=== PATIENT | female | born 1980 ===

== ENCOUNTER 2020-05-25 14:08 | Outpatient (REF) | payer OTHER, SELFPAY | END 2020-05-25 14:09 | disposition home or self-care (01) | LOC: HO.MANLNP 14:08 | PROVIDERS: PCP Internal Medicine; Visit Provider Physician Assistant | DX: R30.9 Painful micturition, unspecified (principal) | CPT/HCPCS: 87086 ==

== ENCOUNTER 2020-06-25 16:39 | Outpatient (REF) | payer OTHER, SELFPAY ==
[2020-06-25 18:04] LABS: Glucose Urine UA NEG (NEG); Leukocyte Esterase Urine NEG (NEG); Nitrite Urine POS (NEG); Specific Gravity - Urine >= 1.030 (1.005-1.025); Urine Blood TRACE (NEG); Urine Ketones NEG (NEG); Urine Protein NEG (NEG-TRACE)
[2020-06-25 18:07] LABS: Appearance Urine HAZY; Color Urine YELLOW
[2020-06-25 18:19] LABS: Bacteria Urine 3+ /LPF; Squamous Epithelial Cell Urine 1+ /LPF
== END 2020-06-25 16:40 | disposition home or self-care (01) ==
LOC: HO.LAB 16:39
PROVIDERS: PCP Internal Medicine; Visit Provider Urology
DX: N20.0 Calculus of kidney (principal)
CPT/HCPCS: 81001; 87086; 87088; 87186

== ENCOUNTER → 2020-08-03 12:16 | Outpatient (BNVA) | payer OTHER, SELFPAY | PROVIDERS: PCP Internal Medicine; Visit Provider Urology ==

== ENCOUNTER 2020-12-25 11:00 | Outpatient (REF) | payer OTHER, SELFPAY ==
--- NOTE | ~2020-12-25 | XR_ITS ---
EXAMINATION: XR ABDOMEN KUB CLINICAL INDICATION: Renal stone. COMPARISON: Multiple priors, most recent renal ultrasound dated 11/02/2019. TECHNIQUE: AP views of the abdomen. FINDINGS: Left upper pole renal stone measuring up to 0.8 cm. Tiny right midpole renal stones measuring approximately 0.2 cm. Evaluation for renal stone is somewhat limited due to overlying bowel gas. Mild stool throughout the colon. Nonobstructive bowel gas pattern. No acute osseous abnormality. XR/XR KUB IMPRESSION: Left-sided renal stone measuring 0.8 cm and multiple right-sided 0.2 cm renal stones. Evaluation is somewhat limited due to overlying bowel gas.
== END 2020-12-25 11:01 | disposition home or self-care (01) ==
LOC: HO.XRAY 11:00
PROVIDERS: PCP Internal Medicine; Visit Provider Physician Assistant
DX: N20.0 Calculus of kidney (principal)
CPT/HCPCS: 74018; 87086

== ENCOUNTER → 2021-01-01 09:38 | Outpatient (BNVA) | payer OTHER, SELFPAY | PROVIDERS: PCP Internal Medicine; Visit Provider Urology ==

== ENCOUNTER 2021-01-17 16:26 | Outpatient (REF) | payer OTHER, SELFPAY ==
--- NOTE | ~2021-01-17 | US_ITS ---
EXAMINATION: US RETROPERITONEAL LIMITED (RENAL ONLY) CLINICAL INFORMATION: Calculus of kidney. COMPARISON: KUB 12/25/2020 and 05/26/2018. Renal ultrasound 11/02/2027 and 03/31/2019. TECHNIQUE: Real-time imaging of the kidneys. FINDINGS: RIGHT KIDNEY: 10.4 x 4.4 x 4.8 cm (SAG x AP x TRV). The kidney is normal in size, contour, and echogenicity. Renal cortical thickness is normal. There are 2 small stones in the upper and midpole measuring 4 mm. No focal parenchymal lesions or hydronephrosis. LEFT KIDNEY: 11.2 x 5.8 x 4.3 cm (SAG x AP x TRV). The kidney is normal in size, contour, and echogenicity. Renal cortical thickness is normal. There are 2 small stones in the upper and midpole measuring 3 mm. No focal parenchymal lesions or hydronephrosis. ADDITIONAL FINDINGS: There are small cysts in the liver and spleen. US/US renal BI IMPRESSION: Small bilateral renal stones..
== END 2021-01-17 16:27 | disposition home or self-care (01) ==
LOC: HO.US 16:26
PROVIDERS: PCP Internal Medicine; Visit Provider Urology
DX: N20.0 Calculus of kidney (principal)
CPT/HCPCS: 76775

== ENCOUNTER 2021-01-23 08:04 | Day surgery (SDC) | payer OTHER, SELFPAY ==
--- NOTE | 2021-01-22 11:16 | P.CONAN_ITS ---
Documented by User: Lana Madsen NP 01/22/21 11:18 HPI - Anesthesia Eval Consult details Narrative: 40yo F for Left ESWL last ESWL 2018 with MAC (freq PVCs noted at start of case) *Med allergies to Pain Meds * (rec'd propofol and lido only for last ESWL) PMFSH Active Problems Active Problems: All Active Problems (Updated 01/17/21 @ 14:50 by Pepper Krishna RN) Nephrolithiasis (Acute) Microscopic hematuria (Acute) Past Medical History Medical History Heartburn Iron deficiency anemia Renal stones Surgical History Surgical History History of lithotripsy History of lithotripsy Social History Social History Patient Tobacco Use Status: Never used Tobacco Second Hand Smoke Exposure: No Use of substances other than those prescribed or required for medical reasons: No Are you DNR?: No Advance Directives: No Advance Directives Information Provided: Yes Advance Directives on File: No Patient : No Meds Allergies Allergy/AdvReac Type Severity Reaction Status Date / Time codeine [CODEINE] Allergy Severe ANAPHYLAXIS Verified 01/17/21 14:51 hydrocodone [From VICODIN] Allergy Severe CHEST Verified 01/17/21 14:51 TIGHTNESS acetaminophen [Percocet] Allergy Intermediate Unknown Verified 01/23/21 09:06 oxycodone [From PERCOCET] AdvReac Severe THEY ARE Verified 01/17/21 14:51 TOO STRONG FOR MY BODY PAIN MEDS AdvReac Severe PT STATES Uncoded 01/17/21 14:51 ONLY TAKES MOTRIN-HAS OVERDOSE RX TO STRONGER Home Medications Medication Instructions Recorded Confirmed Last Taken Type cholecalciferol (vitamin D3) 50 1 cap PO DAILY 01/17/21 01/17/21 Unknown History mcg (2,000 unit) capsule Exam Exam Date and Time: January 22, 2021 111 Assessment and Plan Assessment Anesthesia Assessment: Chart Reviewed Documented by User: Shari Martines MD 01/23/21 09:47 [facility] Past Medical History Medical History Heartburn Iron deficiency anemia Renal stones Family History Family history of problems with anesthesia: No Surgical History Surgical History History of lithotripsy History of lithotripsy History of Problems with Anesthesia: No Social History Social History Patient Tobacco Use Status: Never used Tobacco Second Hand Smoke Exposure: No Use of substances other than those prescribed or required for medical reasons: No Are you DNR?: No Advance Directives: No Advance Directives Information Provided: Yes Advance Directives on File: No Patient : No Meds Allergies Allergy/AdvReac Type Severity Reaction Status Date / Time codeine [CODEINE] Allergy Severe ANAPHYLAXIS Verified 01/17/21 14:51 hydrocodone [From VICODIN] Allergy Severe CHEST Verified 01/17/21 14:51 TIGHTNESS acetaminophen [Percocet] Allergy Intermediate Unknown Verified 01/23/21 09:06 oxycodone [From PERCOCET] AdvReac Severe THEY ARE Verified 01/17/21 14:51 TOO STRONG FOR MY BODY PAIN MEDS AdvReac Severe PT STATES Uncoded 01/17/21 14:51 ONLY TAKES MOTRIN-HAS OVERDOSE RX TO STRONGER Home Medications Medication Instructions Recorded Confirmed Last Taken Type cholecalciferol (vitamin D3) 50 1 cap PO DAILY 01/17/21 01/17/21 Unknown History mcg (2,000 unit) capsule Exam Airway Mallampati Class: II TM Dist: >3cm Neck ROM: Full Assessment and Plan Assessment Anesthesia Assessment: Anesthesia Plan Discussed Final Anesthetic Review Family History of Problems with Anesthesia: No History of Problems with Anesthesia: No NPO: Yes ASA Class: II Final Preanesthetic Review: No Changes in Pt Med Stat, Meds/Allgs Chart Reviewed, Consent Obtained/Reviewed and Anes Risks/Benef Reviewed Patient Risk: Low Procedure Risk: Low Assessment/Block/Sedation in SS: Assess/Block/Sedation-SS Anesthetic Plan Anesthetic Plan: MAC: Disposition: Standard PACU
--- NOTE | ~2021-01-23 | XR_ITS ---
EXAMINATION: XR ABDOMEN KUB CLINICAL INDICATION: Nephrolithiasis COMPARISON: Renal ultrasound January 17, 2021 and KUB December 25, 2020 TECHNIQUE: Single view, two film KUB of the abdomen was obtained. Overlying stool limits sensitivity for small renal calculi. FINDINGS: Stable 8 mm calcification projecting over the upper pole of the left renal shadow. No definitive calcifications identified projecting over the right renal shadow, however, there is a prominent stool burden in this region so the previously visualized 2 mm stones may be present but obscured. Punctate pelvic calcifications is similar and likely vascular in nature. Nonobstructive bowel gas pattern. Moderate colonic stool burden. No acute osseous abnormality. XR/XR KUB IMPRESSION: -Stable left 8 mm renal calculus. -Right renal calculi not identified on today's radiographs, possibly due to overlying stool.
[2021-01-23 08:23] LABS: UPreg QC Valid YES; Urine Pregnancy NEGATIVE (NEGATIVE)
[2021-01-23 09:04] VITALS: BMI 26.4
--- NOTE | 2021-01-23 09:09 | PC.NURSE ---
verified patient allergy to acetaminophen. pt states she can take anything under 800mg. any amount over 800mg can cause chest tightness. pt states allergy to pain medication such as percocet and vicodin. pt agreeable and okay with taking ordered tylenol 650mg po. pharmacy notified.
[2021-01-23] MEDS: Acetaminophen 325 MG TABLET 650 MG PO (09:10)
[2021-01-23 09:16] VITALS: BP 89/53; PULSE 79; RESP 16; TEMP 36.4; O2SAT 100
[2021-01-23] MEDS: Lactated Ringers 1,000 ML 100 ML IVCONT (09:24)
--- NOTE | 2021-01-23 09:41 | MHC.SHP ---
Pre-Procedural Eval Section A Date of Service: 01/23/21 Section B Chief Complaint: kidney stone Details of Present Illness: Left-sided kidney stone fragments Relevant Social History: None Present Medications: see Short Stay Collaborative assessment Medical History: No relevant PMH History of Previous Operations: Relevant previous surgery/procedure and date(s) Allergies: Allergies Allergy/AdvReac Type Severity Reaction Status Date / Time codeine [CODEINE] Allergy Severe ANAPHYLAXIS Verified 01/17/21 14:51 hydrocodone [From VICODIN] Allergy Severe CHEST Verified 01/17/21 14:51 TIGHTNESS acetaminophen [Percocet] Allergy Intermediate Unknown Verified 01/23/21 09:06 oxycodone [From PERCOCET] AdvReac Severe THEY ARE Verified 01/17/21 14:51 TOO STRONG FOR MY BODY PAIN MEDS AdvReac Severe PT STATES Uncoded 01/17/21 14:51 ONLY TAKES MOTRIN-HAS OVERDOSE RX TO STRONGER Review of Systems Sugical H&P ROS: Negative: Constitution, Cardiovascular, Respiratory, Neurological, Psychiatric, Hem-Onc, Allergic/Immunologic, Gastrointestinal, Genitourinary, Musculoskeletal, Integumentary, Endocrine and Eyes/Ears/Nose/Throat Exam Surgical H&P Exam: Normal: HEENT, Normal: Heart, Normal: Lungs, Normal: Extremities, Normal: Abdomen, Normal: Skin and Normal: Neurological Plan Diagnosis/Plan: Unchanged (Left ESWL renal stone) I have reviewed the history and physical and performed a pertinent physical examination on my patient. No changes have occurred unless specified.
--- NOTE | 2021-01-23 10:21 | P.OP_ITS ---
Operative Note Operative Note Date of Service: 01/23/21 Narrative: PreOperative Diagnosis: left Renal stones Post Operative Diagnosis: left Renal stones Procedure: left ESWL Surgeon: Dr Allen Sharp Anesthesia: mac/sedation Indications for procedure: The patient understands ESWL may be a staged procedure and subsequent intervention may be required based on imaging after ESWL. They also understand there is a risk of bleeding to the kidney, infection, damage to adjacent organs, and stone migration following the procedure. - left 6mm mid pole Procedure: After informed consent was verified the patient was brought to the operating room and placed in a supine position. Anesthesia was performed per protocol. Safety pause time-out was performed. Imaging was displayed in the room and laterality confirmed. ESWL was performed. The 1st 500 shocks were performed at 60 hertz. These were performed with inc reasing power. Once maximum power was reached the rate was increased to 180 hertz. A total of 2500 shocks were given. Targeted imaging with ultrasound/fluoroscopy showed stone smudging suggestive of disintegration. The patient tolerated the procedure well and was transferred to the recovery area upon completion. Post procedure imaging will be organized. There was no evidence for flank discoloration.
[2021-01-23 10:53] VITALS: BP 100/49; PULSE 52; RESP 16; TEMP 36.8; O2SAT 99
[2021-01-23 11:08] VITALS: BP 101/58; PULSE 60; RESP 16; O2SAT 100
[2021-01-23 11:23] VITALS: BP 99/62; PULSE 54; RESP 16; TEMP 36.8; O2SAT 100
[2021-01-23] MEDS: Phenazopyridine HCL 100 MG TABLET PO (11:46)
== END 2021-01-23 11:48 | disposition home or self-care (01) ==
PROVIDERS: Nurse Practitioner; PCP Internal Medicine; Visit Provider Urology
PROC: (CPT 50590; principal; 2021-01-23 09:50)
DX: N20.0 Calculus of kidney (principal); Z87.442 Personal history of urinary calculi
CPT/HCPCS: 50590; 74018; 81025; J1885; J2250; J2405; J3010

== ENCOUNTER 2021-02-13 14:26 | Outpatient (REF) | payer OTHER, SELFPAY ==
--- NOTE | ~2021-02-13 | US_ITS ---
EXAMINATION: US RETROPERITONEAL LIMITED (RENAL ONLY) CLINICAL INFORMATION: Renal stones. COMPARISON: Renal ultrasound 01/17/2021 and 11/02/2019. KUB 01/23/2021. TECHNIQUE: Real-time imaging of the kidneys. FINDINGS: RIGHT KIDNEY: 10.6 x 4.1 x 5.8 cm (SAG x AP x TRV). The kidney is normal in size, contour, and echogenicity. Renal cortical thickness is normal. No focal parenchymal lesions or hydronephrosis. Calculi are noted. There is a 0.3 cm midpole calculus. 0.2 cm lower pole calculus. LEFT KIDNEY: 10.4 x 5.8 x 5.7 cm (SAG x AP x TRV). The kidney is normal in size, contour, and echogenicity. Renal cortical thickness is normal. No focal parenchymal lesions or hydronephrosis. Multiple calculi are present. There are at least 5 calculi measuring up to 0.3 cm as seen at the upper and midpole. US/US renal BI IMPRESSION: No hydronephrosis. Multiple bilateral renal calculi. Compared to the most recent prior ultrasound, the number of calculi in the left kidney may be increased..
[2021-02-13 16:30] LABS: Appearance Urine HAZY; Color Urine YELLOW; Glucose Urine UA NEG (NEG); Leukocyte Esterase Urine NEG (NEG); Nitrite Urine NEG (NEG); Specific Gravity - Urine 1.025 (1.005-1.025); Urine Blood 2+ (NEG); Urine Ketones NEG (NEG); Urine Protein TRACE MG/DL (NEG-TRACE)
[2021-02-13 16:38] LABS: Bacteria Urine 1+ /LPF; Squamous Epithelial Cell Urine 2+ /LPF; WBC Urine 0 /HPF (0-4)
[2021-02-13 16:39] LABS: Mucus Urine 1+ /LPF
[2021-02-13 16:57] LABS: Calcium 9.3 mg/dL (8.4-10.2); Magnesium 1.8 mg/dL (1.6-2.6); Phosphorus 3.9 mg/dL (2.7-4.5)
[2021-02-13 17:06] LABS: Uric Acid 4.7 mg/dL (2.4-5.7)
[2021-02-15 10:32] LABS: Calcium (PTHI) 9.4 mg/dL (8.6-10.2); PTHI 51 pg/mL (14-64)
== END 2021-02-13 14:27 | disposition home or self-care (01) ==
LOC: HO.HMGCX 14:26
PROVIDERS: PCP Internal Medicine; Visit Provider Urology
DX: N20.0 Calculus of kidney (principal); Z87.442 Personal history of urinary calculi
CPT/HCPCS: 36415; 76775; 81001; 82310; 83735; 83970; 84100; 84550; 87086

== ENCOUNTER → 2021-02-26 15:28 | Outpatient (BNVA) | payer OTHER, SELFPAY | PROVIDERS: PCP Internal Medicine ==

== ENCOUNTER 2021-06-04 08:18 | Outpatient (REF) | payer OTHER, SELFPAY ==
--- NOTE | ~2021-06-04 | XR_ITS ---
EXAMINATION: XR CERVICAL SPINE CLINICAL INFORMATION: Headache with orthostatic component. Neck pain. COMPARISON: None TECHNIQUE: 6 views of the cervical spine, inclusive of flexion and extension views, were obtained. FINDINGS: The vertebral alignment is normal. No intrinsic bony abnormality. The disc heights and neural foramina are well maintained. The endplates and posterior elements are normal. No fracture or subluxation. There are bilateral C7 cervical ribs. The surrounding prevertebral soft tissues are unremarkable. XR/XR cervical spine min 6V IMPRESSION: Bilateral C7 cervical ribs. Otherwise, unremarkable cervical spine exam.
[2021-06-04 09:11] LABS: MANUAL DIFF FLAG NO
[2021-06-04 09:22] LABS: Basophils Percent Auto 0.2 % (0-2); Eosinophils Percent Auto 0.8 % (0-4); Hemoglobin 13.6 g/dl (12.0-16.0); Imm Gran Abs Auto 0.01 X10*3/uL (0.00-0.03); Imm Gran Pct Auto 0.2 % (0.0-0.4); Lymphocytes Absolute Auto 1.5 X10*3/uL (1.2-4.9); Lymphocytes Percent Auto 27.7 % (20-40); Mean Corpuscular HGB Conc 31.6 g/dl (31.0-35.0); Mean Corpuscular Hemoglobin 26.2 pg (27.0-33.0); Mean Corpuscular Volume 82.9 fL (80.0-98.0); Mean Platelet Volume 11.1 fL (9.4-12.3); Monocytes Absolute Auto 0.4 X10*3/uL (0.1-1.2); Monocytes Percent Auto 8.3 % (2-11); Neutrophils Absolute Auto 3.3 x10*3/uL (2.0-8.3); Neutrophils Percent Auto 62.8 % (45-73); Platelet Count 202 X10*3/uL (160-400); Red Blood Count 5.19 X10*6/uL (4.20-5.50); Red Cell Distribution Width 13.3 % (11.0-16.0); White Blood Count 5.3 X10*3/uL (4.8-10.8)
[2021-06-04 09:59] LABS: Alanine Aminotransferase 17 U/L (0-31); Albumin Level 4.3 g/dL (3.5-5.0); Alkaline Phosphatase 54 U/L (39-117); Anion Gap 10 (12-20); Aspartate Amino Transferase 17 U/L (5-31); Bilirubin Total 0.6 mg/dL (0.0-1.0); Blood Urea Nitrogen 13 mg/dL (9-16); C Reactive Protein 0.04 mg/dL (< or = 0.50); Calcium 9.5 mg/dL (8.4-10.2); Carbon Dioxide 27 mmol/L (22-29); Chloride 107 mmol/L (96-108); Estimated Glomerular Filt Rate > 60; Glucose Random 86 mg/dL (60-115); Iron 97 mcg/dL (30-160); Percent Iron Saturation 28 % (15-50); Sodium 139 mmol/L (135-145); Total Iron Binding Capacity 350 mcg/dL (228-428); Unsaturated Iron Binding 253 ug/dL
[2021-06-04 10:08] LABS: Erythrocyte Sedimentation Rate 2 MM/HR (0-20)
[2021-06-04 10:19] LABS: Free T4 (Free Thyroxine) 0.92 ng/dL (0.71-1.85); Vitamin D 25-OH Total 9.4 ng/mL (>30)
[2021-06-04 10:49] LABS: Folate 12.3 ng/mL (> or = 4.0); Vitamin B12 348 pg/mL (200-900)
== END 2021-06-04 08:19 | disposition home or self-care (01) ==
LOC: HO.XRAY 08:18
PROVIDERS: PCP Internal Medicine; Visit Provider Physician Assistant
DX: R53.83 Other fatigue (principal); R51.0 Headache with orthostatic component, not elsewhere classified
CPT/HCPCS: 36415; 72052; 80053; 82306; 82607; 82746; 83540; 84439; 84443; 85025; 85652; 86140

== ENCOUNTER 2021-08-09 08:29 | Outpatient (REF) | payer OTHER, SELFPAY ==
--- NOTE | ~2021-08-09 | US_ITS ---
EXAMINATION: US RETROPERITONEAL LIMITED (RENAL ONLY) CLINICAL INFORMATION: Calculus of kidney. COMPARISON: Renal ultrasound 02/13/2021 and 01/17/2021. X-ray KUB 01/23/2021 and 12/25/2020. TECHNIQUE: Real-time imaging of the kidneys. FINDINGS: RIGHT KIDNEY: 11.5 x 4.4 x 6.2 cm (SAG x AP x TRV). The kidney is normal in size, contour, and echogenicity. Renal cortical thickness is normal. No focal parenchymal lesions or cysts visualized. There are 3 echogenic stones. A upper pole echogenic stone measures 0.3 x 0.3 x 0.3 cm. Midpole echogenic stone measuring 0.4 x 0.3 x 0.3 cm. Lower pole stone measuring 0.2 x 0.2 x 0.3 cm. There is no caliectasis or hydronephrosis. LEFT KIDNEY: 10.7 x 5.0 x 5.0 cm (SAG x AP x TRV). The kidney is normal in size, contour, and echogenicity. Renal cortical thickness is normal. No focal parenchymal lesions or cysts. There are 3 anechoic stones seen. 1. Lower pole echogenic anechoic stone measures 0.3 x 0.4 x 0.2 cm, midpole stone measures 0.3 x 0.3 x 0.2 cm and midpole stone measures 0.3 x 0.3 x 0.2 cm. There is no caliectasis or hydronephrosis. US/US renal BI IMPRESSION: Bilateral nonobstructive small echogenic renal calculi. No hydronephrosis.
== END 2021-08-09 08:30 | disposition home or self-care (01) ==
LOC: HO.HMGCX 08:29
PROVIDERS: PCP Internal Medicine
DX: N20.0 Calculus of kidney (principal)
CPT/HCPCS: 76775

== ENCOUNTER 2021-09-12 08:02 | Outpatient (REF) | payer OTHER, SELFPAY ==
--- NOTE | ~2021-09-12 | CT_ITS ---
EXAMINATION: CT HEAD WITHOUT CONTRAST CLINICAL INFORMATION: Headache and vertigo COMPARISON: None TECHNIQUE: Contiguous axial imaging was performed from the skull base to vertex without intravenous administration of contrast. This CT examination was performed using dose optimization techniques as appropriate, variously including the following: *Automated exposure control *Adjustment of mA and/or kV according to patient size (this includes techniques or standardized protocols for targeted exams where dose is matched to indication/reason for exam; i.e. extremities or head) *Use of iterative reconstruction technique DLP: 699 mGy-cm FINDINGS: There is no evidence of acute intracranial hemorrhage or territorial infarction. No abnormal mass effect or midline shift is seen. Noriega to white matter differentiation is well preserved. No extra-axial fluid collections are identified. The ventricles are normal in size. There is no abnormal attenuation within the brain parenchyma. The osseous structures and soft tissues are normal. The mastoid air cells and visualized portions of the paranasal sinuses are well aerated. CT/CT head/brain wo con IMPRESSION: No acute intracranial process seen
== END 2021-09-12 08:03 | disposition home or self-care (01) ==
LOC: HO.CT 08:02
PROVIDERS: Visit Provider Physician Assistant
DX: R51.0 Headache with orthostatic component, not elsewhere classified (principal)
CPT/HCPCS: 70450

== ENCOUNTER → 2021-09-24 15:28 | Outpatient (BNVA) | payer OTHER, SELFPAY | PROVIDERS: PCP Internal Medicine | DX: N20.0 Calculus of kidney (principal) ==

== ENCOUNTER 2022-01-02 12:30 | Outpatient (REF) | payer OTHER, SELFPAY ==
[2022-01-02 14:02] LABS: Appearance Urine Clear; Color Urine Yellow; Glucose Urine UA Negative (Negative); Leukocyte Esterase Urine Trace (Negative); Nitrite Urine Negative (Negative); PH 7.5 (5.0-9.0); UMIC TRIGGER UA YES; Urine Blood Negative (Negative); Urine Ketones Negative (Negative); Urine Protein Negative (Neg-Trace)
[2022-01-02 14:05] LABS: Bacteria Urine None Seen (None Seen); Hyaline Casts Urine 0-2 /LPF (0-2); RBC Urine 0-2 /HPF (0-2); WBC Urine 0-5 /HPF (0-5)
== END 2022-01-02 12:31 | disposition home or self-care (01) ==
LOC: HO.HMGCLDS 12:30
PROVIDERS: PCP Internal Medicine; Visit Provider Urology
DX: N20.0 Calculus of kidney (principal)
CPT/HCPCS: 81001; 87086

== ENCOUNTER 2022-05-19 08:09 | Emergency (ER) | payer OTHER, SELFPAY ==
--- NOTE | ~2022-05-19 | US_ITS ---
EXAMINATION: US RETROPERITONEAL LIMITED (RENAL ONLY) CLINICAL INFORMATION: Bilateral flank pain. History of renal colic. COMPARISON: No prior CT scan. Renal ultrasound examinations dating between August 09, 2021 and January 08, 2018. TECHNIQUE: Real-time ultrasound examination of the kidneys was performed. Images were supplemented by color Doppler. FINDINGS: RIGHT KIDNEY: 11.8 x 5.6 x 6.7 cm (SAG x AP x TRV). The kidney appears unremarkable in size, contour, and echogenicity. Renal cortical thickness is normal. No focal parenchymal lesion identified. 0.6 cm mid and 0.4 cm lower pole nonobstructing collecting system calcifications. Question additional punctate nonobstructing calcifications, suboptimally visualized. No hydronephrosis. LEFT KIDNEY: 10.2 x 5.0 x 5.5 cm (SAG x AP x TRV). The kidney appears unremarkable in size, contour, and echogenicity. Renal cortical thickness is normal. No focal parenchymal lesion identified. 0.4 cm upper, 0.5 cm mid, and 0.6 cm lower pole nonobstructing collecting system calcification. No hydronephrosis. US/US renal BI IMPRESSION: No evidence of hydronephrosis. Bilateral, nonobstructing renal collecting system calcifications.
[2022-05-19 08:11] VITALS: BP 110/63; PULSE 81; RESP 16; TEMP 36.8; O2SAT 99; BMI 26.9
[2022-05-19 08:21] VITALS: BP 108/68; PULSE 82; TEMP 36.7; O2SAT 98
[2022-05-19 09:06] LABS: Appearance Urine Clear; Color Urine Dark Yellow; Glucose Urine UA Negative (Negative); Leukocyte Esterase Urine Trace (Negative); Nitrite Urine Negative (Negative); Specific Gravity - Urine >= 1.030 (1.005-1.025); UMIC TRIGGER UACC YES; Urine Blood Small (1+) (Negative); Urine Ketones Trace mg/dL (Negative); Urine Protein 30 (1+) mg/dL (Neg-Trace)
[2022-05-19 09:07] LABS: UPreg QC Valid YES; Urine Pregnancy NEGATIVE (NEGATIVE)
[2022-05-19] MEDS: Ondansetron ODT 4 MG TAB.RAPDIS TRANSLINGU (09:12)
[2022-05-19 09:13] LABS: Bacteria Urine None Seen (None Seen); WBC Urine 0-5 /HPF (0-5)
--- NOTE | 2022-05-19 09:36 | ED_ITS ---
HPI - Abdominal Pain General Chief Complaint: Abdominal Pain Stated Complaint: lower back pain chest tightness Time Seen by Provider: 05/19/22 08:32 Source: patient Mode of arrival: ambulatory History of Present Illness HPI narrative: 41-year-old female with history of renal colic who presents with increasing lower back and lower abdominal discomfort that has been ongoing for a couple of days and is now associated with nausea, vomiting, chills denies dysuria. Related Data Home Medications Medication Instructions Recorded Confirmed cholecalciferol (vitamin D3) 50 1 cap PO DAILY 01/17/21 01/17/21 mcg (2,000 unit) capsule Previous Rx's Medication Instructions Recorded nitrofurantoin macrocrystal 100 mg 100 mg PO BID 5 days #10 caps 06/27/20 capsule tamsulosin 0.4 mg capsule 0.4 mg PO BEDTIME 14 days #14 caps 01/23/21 pyridoxine (vitamin B6) 100 mg 100 mg PO DAILY 90 days #90 tabs 02/26/21 tablet phenazopyridine 100 mg tablet 100 mg PO TID PRN pain 5 days #15 01/06/22 (Pyridium) tabs Allergies Allergy/AdvReac Type Severity Reaction Status Date / Time codeine [CODEINE] Allergy Severe ANAPHYLAXIS Verified 09/24/21 15:33 hydrocodone [From VICODIN] Allergy Severe CHEST Verified 09/24/21 15:33 TIGHTNESS acetaminophen [Percocet] Allergy Intermediate Unknown Verified 09/24/21 15:33 oxycodone [From PERCOCET] AdvReac Severe THEY ARE Verified 09/24/21 15:33 TOO STRONG FOR MY BODY PAIN MEDS AdvReac Severe PT STATES Uncoded 09/24/21 15:33 ONLY TAKES MOTRIN-HAS OVERDOSE RX TO STRONGER Review of Systems Review of Systems Pertinent positives and negatives as stated in HPI. PMFSH Past Medical History Source: nursing notes reviewed Medical History Heartburn Iron deficiency anemia Renal stones Surgical History History of lithotripsy History of lithotripsy Social History Social History Alcohol intake: current Alcohol intake frequency: holidays/special occasions only Patient Tobacco Use Status: Never used Tobacco Smoked in Last 30 Days: No Second Hand Smoke Exposure: No Use of substances other than those prescribed or required for medical reasons: No Advance Directives: Yes Advance Directives Information Provided: No Advance Directives on File: No Patient : No Physical Exam ED Vital Signs: Vital Signs - 24 hr 05/19/22 08:11 05/19/22 08:21 05/19/22 10:06 Temperature 98.2 F 98.1 F 98.1 F Pulse Rate 81 82 70 Respiratory Rate 16 Blood Pressure 110/63 108/68 111/62 Pulse Oximetry 99 98 97 Oxygen Delivery Method Room Air Room Air Room Air 05/19/22 11:58 Temperature 98.1 F Pulse Rate 66 Respiratory Rate Blood Pressure 97/64 Pulse Oximetry 98 Oxygen Delivery Method Room Air BMI result Body Mass Index 26.9 VITAL SIGNS: Reviewed. GENERAL: Well developed, well nourished, in no acute distress. HEAD: Normocephalic/atraumatic EYES: PERRLA, EOMI LUNGS: Normal breath sounds. CARDIOVASCULAR: Regular rate and rhythm without noted murmurs ABDOMEN: Soft, non-tender, non-distended with bowel sounds, no CVA tenderness MUSCULOSKELETAL: No tenderness, deformities, or effusions noted on gross inspection. EXTREMITIES: No cyanosis, clubbing or edema. SKIN: Inspection of the skin reveals no rashes NEUROLOGIC: Alert and oriented x 4. Strength and sensation to light touch were grossly intact x 4. Medical Decision Making Medical Decision Making MDM Narrative: 41-year-old female with back and lower abdominal discomfort. Labs, UA, ultrasound, Zofran/analgesics On re-evaluation patient is feeling much better and all results and findings were discussed with her bedside. On review of all investigations patient appea rs to have nonspecific lower abdominal discomfort that does not appear to be attributable to renal colic, UTI or pyelonephritis. She is otherwise discharged home with recommendations to use Tylenol and ibuprofen as needed for discomfort and follow-up with primary care provider and she will also be given a referral to follow-up with Dr. Sharp. Differential Diagnosis Differential Diagnoses: The differential diagnosis associated with the presentation includes Please see discussion above Lab Data [facility] Lab Attestation statement: I reviewed the patient's lab results. Please see discussion above 05/19/22 09:40 05/19/22 09:40 Labs: Lab Results 05/19/22 05/19/2205/19/23 Range/Units 08:48 08:48 09:40 WBC 4.5 L (4.8-10.8) X10*3/uL RBC 5.05 (4.20-5.50) X10*6/uL Hgb 13.0 (12.0-16.0) g/dl Hct 40.1 (37.0-47.0) % MCV 79.4 L (80.0-98.0) fL MCH 25.7 L (27.0-33.0) pg MCHC 32.4 (31.0-35.0) g/dl RDW 13.6 (11.0-16.0) % Plt Count 162 (160-400) X10*3/uL MPV 10.3 (9.4-12.3) fL Immature Gran % (Auto) 0.2 (0.0-0.4) % Neut % (Auto) 62.8 (45-73) % Lymph % (Auto) 21.4 (20-40) % Gilmer % (Auto) 15.4 H (2-11) % Eos % (Auto) 0.0 (0-4) % Baso % (Auto) 0.2 (0-2) % Lymph # (Auto) 1.0 L (1.2-4.9) X10*3/uL Gilmer # (Auto) 0.7 (0.1-1.2) X10*3/uL Eos # (Auto) 0.0 (0.0-0.4) X10*3/uL Baso # (Auto) 0.0 (0.0-0.2) X10*3/uL Abs Immat Gran (auto) 0.01 (0.00-0.03) X10*3/uL Absolute Neuts (auto) 2.9 (2.0-8.3) x10*3/uL Absolute Nucleated RBC 0.000 (0.0-0.012) X10*3/uL Nucleated RBC % (auto) 0.0 (0.0-0.2) /100WBC Sodium (135-145) mmol/L Potassium (3.3-5.1) mmol/L Chloride (96-108) mmol/L Carbon Dioxide (22-29) mmol/L Anion Gap (12-20) BUN (9-16) mg/dL Creatinine (0.5-1.4) mg/dL Estim Creat Clear Calc Estimated GFR Random Glucose (60-115) mg/dL Calcium (8.4-10.2) mg/dL Total Bilirubin (0.0-1.0) mg/dL AST (5-31) U/L ALT (0-31) U/L Alkaline Phosphatase (39-117) U/L Total Protein (6.5-8.0) g/dL Albumin (3.5-5.0) g/dL Urine Color Dark Yellow Urine Appearance Clear Urine pH 6.0 (5.0-9.0) Ur Specific Tennille >= 1.030 H (1.005-1.025) Urine Protein 30 (1+) H (Neg-Trace) mg/dL Urine Glucose (UA) Negative (Negative) mg/dL Urine Ketones Trace (Negative) mg/dL Urine Blood Small (1+) H (Negative) Urine Nitrite Negative (Negative) Ur Leukocyte Esterase Trace H (Negative) Urine RBC 3-5 H (0-2) /HPF Urine WBC 0-5 (0-5) /HPF Ur Squamous Epith Cells 3-5 (0-2) /HPF Urine Bacteria None Seen (None Seen) Hyaline Casts 3-5 (0-2) /LPF Urine Test NEGATIVE (NEGATIVE) 05/19/22 Range/Units 09:40 WBC (4.8-10.8) X10*3/uL RBC (4.20-5.50) X10*6/uL Hgb (12.0-16.0) g/dl Hct (37.0-47.0) % MCV (80.0-98.0) fL MCH (27.0-33.0) pg MCHC (31.0-35.0) g/dl RDW (11.0-16.0) % Plt Count (160-400) X10*3/uL MPV (9.4-12.3) fL Immature Gran % (Auto) (0.0-0.4) % Neut % (Auto) (45-73) % Lymph % (Auto) (20-40) % Gilmer % (Auto) (2-11) % Eos % (Auto) (0-4) % Baso % (Auto) (0-2) % Lymph # (Auto) (1.2-4.9) X10*3/uL Gilmer # (Auto) (0.1-1.2) X10*3/uL Eos # (Auto) (0.0-0.4) X10*3/uL Baso # (Auto) (0.0-0.2) X10*3/uL Abs Immat Gran (auto) (0.00-0.03) X10*3/uL Absolute Neuts (auto) (2.0-8.3) x10*3/uL Absolute Nucleated RBC (0.0-0.012) X10*3/uL Nucleated RBC % (auto) (0.0-0.2) /100WBC Sodium 138 (135-145) mmol/L Potassium 4.3 (3.3-5.1) mmol/L Chloride 107 (96-108) mmol/L Carbon Dioxide 25 (22-29) mmol/L Anion Gap 10 L (12-20) BUN 11 (9-16) mg/dL Creatinine 0.65 (0.5-1.4) mg/dL Estim Creat Clear Calc 96.0 Estimated GFR > 60 Random Glucose 87 (60-115) mg/dL Calcium 8.9 D (8.4-10.2) mg/dL Total Bilirubin 0.4 (0.0-1.0) mg/dL AST 16 (5-31) U/L ALT 18 (0-31) U/L Alkaline Phosphatase 55 (39-117) U/L Total Protein 6.6 (6.5-8.0) g/dL Albumin 4.0 (3.5-5.0) g/dL Urine Color Urine Appearance Urine pH (5.0-9.0) Ur Specific Tenn[place] (1.005-1.025) Urine Protein (Neg-Trace) mg/dL Urine Glucose (UA) (Negative) mg/dL Urine Ketones (Negative) mg/dL Urine Blood (Negative) Urine Nitrite (Negative) Ur Leukocyte Esterase (Negative) Urine RBC (0-2) /HPF Urine WBC (0-5) /HPF Ur Squamous Epith Cells (0-2) /HPF Urine Bacteria (None Seen) Hyaline Casts (0-2) /LPF Urine Test (NEGATIVE) Radiology Impression Radiologist Impression: My interpretation is agree with radiology's impression of the imaging study. Medications Administered Discontinued Medications Generic Name Dose Route Start Last Admin Trade Name Freq PRN Reason Stop Dose Admin Ibuprofen 400 mg 05/19/22 09:37 05/19/22 10:53 Ibuprofen 400 Mg Tablet PO 05/19/22 09:38 400 mg ONCE ONE Administration Ondansetron HCl 4 mg 05/19/22 08:33 05/19/22 09:12 Ondansetron Odt 4 Mg Tab.Rapdis TRANSLINGU 05/19/22 08:34 4 mg ONCE ONE Administration Discharge Plan Discharge Clinical Impression: Abdominal discomfort Patient Disposition: Home, Self-Care Instructions: Abdominal Pain (ED) Additional Instructions: 1. Recommend [id number] Tylenol/ibuprofen as needed for pain control, increase fluid hydration in limit the amount of caffeine and carbonated products at this time. 2. You have been provided with a referral to follow-up with urology please call the office and set up an appointment for evaluation. Return to the ER for any worsening symptoms. Prescriptions: No Action nitrofurantoin macrocrystal 100 mg capsule 100 mg PO BID 5 Days Qty: 10 0RF Rx Instructions: must administer with a meal/food phenazopyridine [Pyridium] 100 mg tablet 100 mg PO TID PRN (Reason: pain) 5 Days Qty: 15 0RF cholecalciferol (vitamin D3) 50 mcg (2,000 unit) capsule 1 cap PO DAILY tamsulosin 0.4 mg capsule 0.4 mg PO BEDTIME 14 Days Qty: 14 0RF pyridoxine (vitamin B6) 100 mg tablet 100 mg PO DAILY 90 Days Qty: 90 1RF Referrals: Oni Amezquita MD [Primary Care Provider] - Allen Sharp MD [Physician] -
[2022-05-19 09:47] LABS: MANUAL DIFF FLAG NO
[2022-05-19 09:50] LABS: Basophils Percent Auto 0.2 % (0-2); Hematocrit 40.1 % (37.0-47.0); Imm Gran Abs Auto 0.01 X10*3/uL (0.00-0.03); Imm Gran Pct Auto 0.2 % (0.0-0.4); Lymphocytes Percent Auto 21.4 % (20-40); Mean Corpuscular HGB Conc 32.4 g/dl (31.0-35.0); Mean Corpuscular Hemoglobin 25.7 pg (27.0-33.0); Mean Corpuscular Volume 79.4 fL (80.0-98.0); Mean Platelet Volume 10.3 fL (9.4-12.3); Monocytes Absolute Auto 0.7 X10*3/uL (0.1-1.2); Monocytes Percent Auto 15.4 % (2-11); Neutrophils Absolute Auto 2.9 x10*3/uL (2.0-8.3); Neutrophils Percent Auto 62.8 % (45-73); Platelet Count 162 X10*3/uL (160-400); Red Blood Count 5.05 X10*6/uL (4.20-5.50); Red Cell Distribution Width 13.6 % (11.0-16.0); White Blood Count 4.5 X10*3/uL (4.8-10.8)
[2022-05-19 10:05] LABS: Alanine Aminotransferase 18 U/L (0-31); Alkaline Phosphatase 55 U/L (39-117); Anion Gap 10 (12-20); Aspartate Amino Transferase 16 U/L (5-31); Bilirubin Total 0.4 mg/dL (0.0-1.0); Blood Urea Nitrogen 11 mg/dL (9-16); Calcium 8.9 mg/dL (8.4-10.2); Carbon Dioxide 25 mmol/L (22-29); Chloride 107 mmol/L (96-108); Estimated Glomerular Filt Rate > 60; Glucose Random 87 mg/dL (60-115); Potassium 4.3 mmol/L (3.3-5.1); Sodium 138 mmol/L (135-145); Total Protein 6.6 g/dL (6.5-8.0)
[2022-05-19 10:06] VITALS: BP 111/62; PULSE 70; TEMP 36.7; O2SAT 97
[2022-05-19] MEDS: Ibuprofen 400 MG TABLET PO (10:53)
[2022-05-19 11:58] VITALS: BP 97/64; PULSE 66; TEMP 36.7; O2SAT 98
[2022-05-19 14:50] VITALS: BP 102/61; PULSE 66; RESP 18; TEMP 36.8; O2SAT 98
== END 2022-05-19 14:52 | disposition home or self-care (01) ==
PROVIDERS: Emergency Provider Student in an Organized Health Care Education/Training Program; PCP Internal Medicine
DX: M54.50 Low back pain, unspecified (principal); R07.89 Other chest pain; Z79.899 Other long term (current) drug therapy
CPT/HCPCS: 36415; 76775; 80053; 81001; 81003; 81025; 85025; 99284; 99285

== ENCOUNTER 2022-09-01 12:56 | Outpatient (REF) | payer OTHER, SELFPAY ==
--- NOTE | ~2022-09-01 | US_ITS ---
EXAMINATION: US RETROPERITONEAL LIMITED (RENAL ONLY) CLINICAL INFORMATION: Calculus of kidney. COMPARISON: Ultrasound retroperitoneal limited (renal only) 05/19/2022 and 08/09/2021. X-ray abdomen KUB 01/23/2021 and 12/25/2020. TECHNIQUE: Real-time imaging of the kidneys. FINDINGS: RIGHT KIDNEY: 11.4 x 4.5 x 6.7 cm (SAG x AP x TRV). The kidney is normal in size, contour, and echogenicity. Renal cortical thickness is normal. Several punctate sub-5 mm nonobstructing calculi are noted within the right kidney. There is no hydronephrosis. LEFT KIDNEY: 10.6 x 5.7 x 6.2 cm (SAG x AP x TRV). The kidney is normal in size, contour, and echogenicity. Renal cortical thickness is normal. A few tiny 3 to 4 mm nonobstructing calculi are noted within the left kidney. There is no hydronephrosis. US/US renal BI IMPRESSION: Tiny bilateral nonobstructing renal calculi. No hydronephrosis.
== END 2022-09-01 12:57 | disposition home or self-care (01) ==
LOC: HO.HMGCX 12:56
PROVIDERS: PCP Internal Medicine; Visit Provider Nurse Practitioner Family
DX: N20.0 Calculus of kidney (principal)
CPT/HCPCS: 76775

== ENCOUNTER 2022-09-03 07:52 | Outpatient (REF) | payer OTHER, SELFPAY ==
[2022-09-03 08:01] LABS: MANUAL DIFF FLAG NO
[2022-09-03 08:35] LABS: Basophils Percent Auto 0.3 % (0-2); Eosinophils Percent Auto 0.6 % (0-4); Hematocrit 40.9 % (37.0-47.0); Hemoglobin 13.2 g/dl (12.0-16.0); Imm Gran Abs Auto 0.02 X10*3/uL (0.00-0.03); Imm Gran Pct Auto 0.3 % (0.0-0.4); Lymphocytes Absolute Auto 1.5 X10*3/uL (1.2-4.9); Lymphocytes Percent Auto 23.5 % (20-40); Mean Corpuscular HGB Conc 32.3 g/dl (31.0-35.0); Mean Corpuscular Hemoglobin 25.9 pg (27.0-33.0); Mean Corpuscular Volume 80.2 fL (80.0-98.0); Mean Platelet Volume 10.6 fL (9.4-12.3); Monocytes Absolute Auto 0.4 X10*3/uL (0.1-1.2); Monocytes Percent Auto 6.4 % (2-11); Neutrophils Absolute Auto 4.3 x10*3/uL (2.0-8.3); Neutrophils Percent Auto 68.9 % (45-73); Platelet Count 201 X10*3/uL (160-400); Red Cell Distribution Width 13.5 % (11.0-16.0); White Blood Count 6.3 X10*3/uL (4.8-10.8)
[2022-09-03 09:38] LABS: Alanine Aminotransferase 14 U/L (0-31); Albumin Level 4.1 g/dL (3.5-5.0); Alkaline Phosphatase 56 U/L (39-117); Anion Gap 11 (12-20); Aspartate Amino Transferase 13 U/L (5-31); Bilirubin Total 0.6 mg/dL (0.0-1.0); Blood Urea Nitrogen 13 mg/dL (9-16); Calcium 8.9 mg/dL (8.4-10.2); Carbon Dioxide 24 mmol/L (22-29); Chloride 109 mmol/L (96-108); Cholesterol 165 mg/dL; Estimated Glomerular Filt Rate > 60; Glucose Random 80 mg/dL (60-115); HDL Cholesterol 45 mg/dL; Iron 79 mcg/dL (30-160); LDL Cholesterol Calculated 109 mg/dl; Percent Iron Saturation 26 % (15-50); Potassium 4.2 mmol/L (3.3-5.1); Sodium 140 mmol/L (135-145); Total Iron Binding Capacity 305 mcg/dL (228-428); Total Protein 6.5 g/dL (6.5-8.0); Triglycerides 58 mg/dL; Unsaturated Iron Binding 226 ug/dL
[2022-09-03 09:49] LABS: Ferritin 35 ng/mL (10-122); Thyroid Stimulating Hormone 1.23 uIU/mL (0.32-4.0); Vitamin B12 386 pg/mL (200-900); Vitamin D 25-OH Total 26.8 ng/mL (>30)
== END 2022-09-03 07:53 | disposition home or self-care (01) ==
LOC: HO.LAB 07:52
PROVIDERS: PCP Internal Medicine; Visit Provider Internal Medicine
DX: Z00.00 Encounter for general adult medical examination without abnormal findings (principal); R53.83 Other fatigue; E55.9 Vitamin D deficiency, unspecified; G93.32 Myalgic encephalomyelitis/chronic fatigue syndrome; E78.00 Pure hypercholesterolemia, unspecified
CPT/HCPCS: 36415; 80053; 80061; 82306; 82607; 82728; 83540; 84443; 85025

== ENCOUNTER 2022-09-23 13:03 | Outpatient (REF) | payer OTHER, SELFPAY | END 2022-09-23 13:04 | disposition home or self-care (01) | LOC: HO.LNP 13:03 | PROVIDERS: PCP Internal Medicine; Visit Provider Nurse Practitioner Family | DX: N20.0 Calculus of kidney (principal); R31.29 Other microscopic hematuria | CPT/HCPCS: 87086 ==

== ENCOUNTER 2023-01-01 11:58 | Outpatient (REF) | payer OTHER, SELFPAY ==
[2023-01-01 14:19] LABS: Anion Gap 10 (12-20); Blood Urea Nitrogen 10 mg/dL (9-16); Calcium 9.2 mg/dL (8.4-10.2); Carbon Dioxide 25 mmol/L (22-29); Chloride 108 mmol/L (96-108); Estimated Glomerular Filt Rate > 60; Glucose Random 86 mg/dL (60-115); Magnesium 1.7 mg/dL (1.6-2.6); Phosphorus 2.8 mg/dL (2.7-4.5); Potassium 4.4 mmol/L (3.3-5.1); Sodium 139 mmol/L (135-145); Uric Acid 3.2 mg/dL (2.4-5.7)
[2023-01-05 13:59] LABS: Calcium (PTHI) 9.3 mg/dL (8.6-10.2); PTHI 61 pg/mL (16-77)
== END 2023-01-01 11:59 | disposition home or self-care (01) ==
LOC: HO.HMGCLDS 11:58
PROVIDERS: PCP Internal Medicine; Visit Provider Nurse Practitioner Family
DX: N20.0 Calculus of kidney (principal)
CPT/HCPCS: 36415; 80048; 82306; 83735; 83970; 84100; 84550

== ENCOUNTER 2023-01-09 08:24 | Outpatient (REF) | payer OTHER, SELFPAY | END 2023-01-09 08:25 | disposition home or self-care (01) | LOC: HO.LNP 08:24 | PROVIDERS: PCP Internal Medicine; Visit Provider Nurse Practitioner Family | DX: N39.0 Urinary tract infection, site not specified (principal); N20.0 Calculus of kidney; R31.29 Other microscopic hematuria | CPT/HCPCS: 81003; 87086 ==

== ENCOUNTER 2023-01-09 08:24 | Outpatient (AMB) | payer OTHER, SELFPAY ==
--- NOTE | 2023-01-09 08:28 | A.OFFVIS_ITS ---
Intake Intake Visit Reasons: 3m/labs/litholink Intake Note: Patient presents for follow up kidney stones/labs/litholink Urology Medications: Vitamin B6 Blood Thinners: none Banana Carrier Required: No Accompanied by: Self / Same As Patient Allergies codeine [CODEINE] Allergy (Severe, Verified 01/09/23 11:31) ANAPHYLAXIS hydrocodone [From VICODIN] Allergy (Severe, Verified 01/09/23 11:31) CHEST TIGHTNESS acetaminophen [Percocet] Allergy (Intermediate, Verified 01/09/23 11:31) Unknown oxycodone [From PERCOCET] Adverse Reaction (Severe, Verified 01/09/23 11:31) THEY ARE TOO STRONG FOR MY BODY PAIN MEDS Adverse Reaction (Severe, Uncoded 01/09/23 11:31) PT STATES ONLY TAKES MOTRIN-HAS OVERDOSE RX TO STRONGER Medication List - Last Reconciled 01/09/23 by JENA Guerra-RODY cholecalciferol (vitamin D3) 1 cap PO DAILY pyridoxine (vitamin B6) 100 mg PO DAILY 90 days HPI HPI Comments History of Present Illness Details Suma is a very pleasant 42-year-old female patient of Dr. Amezquita. She presents to the office today for follow-up of her longstanding history of nephrolithiasis and recurrent urinary tract infections. In discussion with the patient today she reports to be doing and feeling well. Of note, patient was seen approximately 3 months ago at which time labs as well as a 24 hour urine was ordered and has since been completed. These results reviewed with the patient today. Urine volume low--1.09 liters Sodium urine high--222 Urine citrate low--418 Uric acid--3.2 Calcium--9.2 Phosphorus--2.8 Magnesium--1.7 Vitamin D total--33 PTH--61 In office urinalysis results reviewed with the patient today. 1+ leukocytes and microscopic hematuria noted. When asked patient reporting bladder pressure. However she denies urinary urgency, urinary frequency, incontinence, nocturia, hematuria, dysuria, foul smelling urine, changes to urinary stream, flank pain, fever, and or chills. She is happy with her current voiding parameters. Discussed importance of drinking plenty of fluid (water) daily for recurrent urinary tract infections as well as nephrolithiasis. Discussed decreasing sodium intake per recommendations on 24 hour urine collection. When asked patient denies constipation. However, she endorses moving her bowels 1-2 times per week. She states this is her baseline and when she does move her bowels, bowels are soft and regular. She discusses following up with GI as she has a longstanding history of this issue. She reports having had 2 colonoscopies in the past. Patient otherwise offers no issues or concerns. [facility] Medical History Iron deficiency anemia Heartburn Renal stones Surgical History History of lithotripsy History of lithotripsy Social History Alcohol intake: current Alcohol intake frequency: holidays/special occasions only Patient Tobacco Use Status: Never used Tobacco Second Hand Smoke Exposure: No Physical Exam Const General: cooperative, healthy appearing, comfortable, no acute distress, well developed, alert and awake Orientation/consciousness: patient oriented x3 Limitations: no limitations HEENT Head: Yes normal to inspection, Yes normocephalic and Yes atraumatic Ears: hearing grossly normal bilaterally Eyes General: appearance normal, both eyes and all related structures Neck Neck: Yes normal visual inspection and Yes trachea midline Chest Chest palpation & inspection: normal inspection of the chest Resp Effort & Inspection: normal respiratory effort and able to speak in complete sentences Cardio Rate: regular rate GI Inspection: Yes normal to inspection General: Yes no CVA tenderness Back/Spine/Pelvis Back: no CVA tenderness Skin General skin exam: no rashes or lesions noted Neuro General: patient oriented x3 Extrem General: Yes normal to inspection Psych Appearance: grossly normal and well kempt Mental Status: mental status grossly normal Speech and movement: Normal speech and movement present and Clear speech present Affect: normal affect Attitude: cooperative Thought process: Normal thought process present Thought content: Normal thought content present Insight: Good insight present (Psych) Judgement: Good judgement present (Psych) Results AMB Urinalysis, Automated UA Leukoctes 70 Shelly/uL Last Edit by Caro Walker [facility] on 01/09/23 08:45 1+ Caro Walker 01/09/23 08:45 UA Nitrite Negative Last Edit by Caro Walker [facility] on 01/09/23 08:45 UA Urobilinogen 0.2 mg/dL Last Edit by Caro Walker, [facility] on 01/09/23 08:4 5 UA Protein 0 mg/dL Last Edit by Caro Walker, [facility] on 01/09/23 08:45 UA pH 6.0 Last Edit by Caro Walker [facility] on 01/09/23 08:45 UA Blood 10 [place]/uL Last Edit by Caro Walker [facility] on 01/09/23 08:45 UA Specific [place] 1.030 Last Edit by Caro Walker [facility] on 01/09/23 08: 45 UA Ketone Negative Last Edit by Caro Walker [facility] on 01/09/23 08:45 UA Bilirubin 1 mg/dL Last Edit by Caro Walker [facility] on 01/09/23 08:45 1+ aCro Walker 01/09/23 08:45 UA Glucose 0 mg/dL Last Edit by Caro Walker [facility] on 01/09/23 08:45 Results Reviewed Results Reviewed: Laboratory Last Values Urine pH (Auto) 6.0 01/09/23 08:41 Specific [place] (Auto) 1.030 01/09/23 08:41 Urine Protein (Auto) 0 mg/dL 01/09/23 08:41 Glucose (UA)(Auto) 0 mg/dL 01/09/23 08:41 Urine Ketones (Auto) Negative 01/09/23 08:41 Urine Blood (Auto) 10 [place]/uL 01/09/23 08:41 Urine Nitrite (Auto) Negative 01/09/23 08:41 Urine Bilirubin (Auto) 1 mg/dL 01/09/23 08:41 Urine Urobilinogen (Auto) 0.2 mg/dL 01/09/23 08:41 Leukocyte Esterase (Auto) 70 Shelly/uL 01/09/23 08:41 Assessment & Plan Assessment & Plan (1) Complicated urinary tract infection: Code(s): N39.0 - Urinary tract infection, site not specified (2) Renal stones: Code(s): N20.0 - Calculus of kidney (3) Nephrolithiasis: Code(s): N20.0 - Calculus of kidney (4) Microscopic hematuria: Code(s): R31.29 - Other microscopic hematuria Plan In office urinalysis results reviewed with the patient today; will send for urine culture. Recent 24 hour urine results reviewed with the patient today; as noted above Recent labs reviewed; as noted above Discussed and stressed the importance of increasing water intake and decrease in sodium intake. Will obtain repeat 24 hour urine collection with lifestyle modifications in 3 months. Continue adding 1 oz of lemon juice to water daily. Continue vitamin B6 as discussed and prescribed; refill provided Will obtain retroperitoneal ultrasound in 3 months for further assessment and evaluation. Follow-up in 3 months with imaging and 24 hour urine collection to be completed prior; or sooner with any issues, concerns, and or questions. Orders: Orders US retroperitoneal comp 3 Months N20.0 - Calculus of kidney, N39.0 - Urinary tract infection, site not specified, R31.29 - Other microscopic hematuria URORISK 3 Months N20.0 - Calculus of kidney AMB Urinalysis Automated 01/09/23 N39.0 - Urinary tract infection, site not specified Urine Culture 01/09/23 N39.0 - Urinary tract infection, site not specified Medications: Refilled pyridoxine (vitamin B6) 100 mg PO DAILY 90 tabs 4RF 90 days N13.2 - Hydronephrosis with renal and ureteral calculous obstruction, N20.0 - Calculus of kidney Patient Instructions: The patient had an opportunity to ask questions regarding the treatment plan. All questions were answered. Physical exam, labs, and imaging were discussed and reviewed in detail. As well as risks, benefits, and discussion of treatment choices. No major barriers to understanding were identified. The patient expressed understanding and agreement with the above treatment plan. The patient was made aware they should contact our office by phone for worsening of their current condition, the appearance of new symptoms, or with any questions or concerns. Compliance is encouraged with any medications and follow up testing that is ordered. It is a privilege to be allowed the opportunity to participate in? your urological care.? Again, if you have any questions or concerns If you have any questions or concerns please do not hesitate to contact me. The office is [phone]. This note is constructed using voice recognition software. While every effort has been made to ensure accuracy pump station operator errors may have been included. Yours sincerely, GERMAN Guerra Coding Level of Care Code Est Pt Level 3 (30150) Diagnoses Complicated urinary tract infection N39.0 Renal stones N20.0 Microscopic hematuria R31.29
== END 2023-01-09 09:23 | disposition home or self-care (01) ==
PROVIDERS: PCP Internal Medicine; Visit Provider Nurse Practitioner Family
DX: N39.0 Urinary tract infection, site not specified (principal); N20.0 Calculus of kidney; R31.29 Other microscopic hematuria
CPT/HCPCS: 99213

== ENCOUNTER 2023-03-30 08:21 | Outpatient (REF) | payer OTHER, SELFPAY ==
--- NOTE | ~2023-03-30 | US_ITS ---
EXAMINATION: US RETROPERITONEAL COMPLETE (RENAL) CLINICAL INFORMATION: Urinary tract infection, kidney stones. Microhematuria. COMPARISON: Renal ultrasound 09/01/2022 and 05/19/2022. X-ray abdomen KUB 01/23/2021. TECHNIQUE: Real-time imaging of the kidneys and bladder. Limited visualization due to bowel gas. FINDINGS: RIGHT KIDNEY: 10.5 x 4.2 x 7.2 cm (SAG x AP x TRV). Multiple tiny renal calculi measuring approximately 2-3 mm. No hydronephrosis. Renal cortical thickness is normal. Limited visualization. LEFT KIDNEY: 10.5 x 6.1 x 5.4 cm (SAG x AP x TRV). Multiple tiny renal calculi measuring approximately 2-3 mm. No hydronephrosis. Renal cortical thickness is normal. Limited visualization. BLADDER: Well distended. Bilateral ureteral jets are demonstrated. Prevoid bladder volume is 432 mL. Postvoid bladder volume is 0 mL. Complex material within the urinary bladder is characteristic of debris. US/US retroperitoneal comp IMPRESSION: 1. Bilateral nonobstructive renal calculi. No hydronephrosis. 2. Complex material within the urinary bladder is characteristic of debris.
== END 2023-03-30 08:22 | disposition home or self-care (01) ==
LOC: HO.HMGCX 08:21
PROVIDERS: PCP Internal Medicine; Visit Provider Nurse Practitioner Family
DX: N39.0 Urinary tract infection, site not specified (principal); N20.0 Calculus of kidney; R31.29 Other microscopic hematuria
CPT/HCPCS: 76770

== ENCOUNTER 2023-04-15 08:33 | Outpatient (AMB) | payer OTHER, SELFPAY ==
--- NOTE | 2023-04-15 08:36 | A.OFFVIS_ITS ---
Intake Intake Visit Reasons: 3m/US/litholink(set) Intake Note: Patient presents for follow up kidney stones/ultrasound/litholink (imaging 03/30/23) Urology Medications: Vitamin B6 Blood Thinners: none Documentation Clerk Required: No Accompanied by: Self / Same As Patient Allergies codeine [CODEINE] Allergy (Severe, Verified 04/16/23 09:04) ANAPHYLAXIS hydrocodone [From VICODIN] Allergy (Severe, Verified 04/16/23 09:04) CHEST TIGHTNESS acetaminophen [Percocet] Allergy (Intermediate, Verified 04/16/23 09:04) Unknown oxycodone [From PERCOCET] Adverse Reaction (Severe, Verified 04/16/23 09:04) THEY ARE TOO STRONG FOR MY BODY PAIN MEDS Adverse Reaction (Severe, Uncoded 04/16/23 09:04) PT STATES ONLY TAKES MOTRIN-HAS OVERDOSE RX TO STRONGER HPI HPI Comments History of Present Illness Details Suma is a very pleasant 42-year-old female patient of Dr. Amezquita. She presents to the office today for follow-up of her longstanding history of nephrolithiasis and recurrent urinary tract infections. In discussion with the patient today she reports to be doing and feeling well. Recent renal imaging results reviewed with the patient today. Bilateral kidneys with multiple tiny renal calculi measuring approximately 2-3 mm. No hydronephrosis. The bladder is well distended and normal. Pre void bladder volume is approximately 430 mL. Postvoid bladder volume is 0 mL. 24 hour urine collection results reviewed with the patient today. Although urine volume has risen when compared to previous collection it remains low at 1.1 L. Discussed goal of approximately 2 to 2.5 L of urine output daily. Discussed hypercalciuria and potential for thiazide versus dietary changes. This was discussed at length. In office urinalysis results reviewed with the patient today. She otherwise currently denies any bothersome urinary issues or case rns. When asked she denies urinary urgency, urinary frequency, incontinence, nocturia, hematuria, dysuria, foul smelling urine, changes to urinary stream, flank pain, fever, and or chills. She is happy with her current voiding parameters. Discussed importance of drinking plenty of fluid (water) daily for recurrent urinary tract infections as well as nephrolithiasis. Discussed continuing to decrease sodium intake per results of 24 hour urine collection. She otherwise offers no issues or concerns at this time. [facility] Medical History Iron deficiency anemia Heartburn Renal stones Surgical History History of lithotripsy History of lithotripsy Social History Alcohol intake: current Alcohol intake frequency: holidays/special occasions only Patient Tobacco Use Status: Never used Tobacco Second Hand Smoke Exposure: No Review of Systems Const All systems reviewed & are unremarkable except as noted in HPI and below Reports no additional complaints Eyes Reports no additional complaints ENT Reports no additional complaints Card Reports no additional complaints Resp Reports no additional complaints GI Reports no additional complaints Reports as per HPI Musc Reports no additional complaints Neuro Reports no additional complaints Psych Reports no additional complaints Endo Reports no additional complaints Patel/Lymph Reports no additional complaints Aller/Immun Reports no additional complaints Physical Exam Const General: cooperative, healthy appearing, comfortable, no acute distress, well developed, alert and awake Orientation/consciousness: patient oriented x3 Limitations: no limitations HEENT Head: Yes normal to inspection, Yes normocephalic and Yes atraumatic Ears: hearing grossly normal bilaterally Eyes General: appearance normal, both eyes and all related structures Neck Neck: Yes normal visual inspection and Yes trachea midline Chest Chest palpation & inspection: normal inspection of the chest Resp Effort & Inspection: normal respiratory effort and able to speak in complete sentences Cardio Rate: regular rate GI Inspection: Yes normal to inspection General: Yes no CVA tenderness Back/Spine/Pelvis Back: no CVA tenderness Skin General skin exam: no rashes or lesions noted Neuro General: patient oriented x3 Extrem General: Yes normal to inspection Psych Appearance: grossly normal and well kempt Mental Status: mental status grossly normal Speech and movement: Normal speech and movement present and Clear speech present Affect: normal affect Attitude: cooperative Thought process: Normal thought process present Thought content: Normal thought content present Insight: Good insight present (Psych) Judgement: Good judgement present (Psych) Results AMB Urinalysis, Automated UA Leukoctes 0 Shelly/uL Last Edit by Vanessa Casarez on 04/15/23 08:56 UA Nitrite Negative Last Edit by Vanessa Casarez on 04/15/23 08:56 UA Urobilinogen 0.2 mg/dL Last Edit by Vanessa Casarez on 04/15/23 08:56 UA Protein 0 mg/dL Last Edit by Vanesas Casarez on 04/15/23 08:56 UA pH 6.0 Last Edit by Vanessa Casarez on 04/15/23 08:56 UA Blood 10 [place]/uL Last Edit by Vanessa Casarez on 04/15/23 08:56 UA Specific [place] 1.020 Last Edit by Vanessa Casarez on 04/15/23 08:56 UA Ketone Negative Last Edit by Vanessa Casarez on 04/15/23 08:56 UA Bilirubin 0 mg/dL Last Edit by Vanessa Casarez on 04/15/23 08:56 UA Glucose 0 mg/dL Last Edit by Vanessa Casarez on 04/15/23 08:56 Results Reviewed Results Reviewed: Laboratory Last Values Urine pH (Auto) 6.0 04/15/23 08:38 Specific [place] (Auto) 1.020 04/15/23 08:38 Urine Protein (Auto) 0 mg/dL 04/15/23 08:38 Glucose (UA)(Auto) 0 mg/dL 04/15/23 08:38 Urine Ketones (Auto) Negative 04/15/23 08:38 Urine Blood (Auto) 10 [place]/uL 04/15/23 08:38 Urine Nitrite (Auto) Negative 04/15/23 08:38 Urine Bilirubin (Auto) 0 mg/dL 04/15/23 08:38 Urine Urobilinogen (Auto) 0.2 mg/dL 04/15/23 08:38 Leukocyte Esterase (Auto) 0 Shelly/uL 04/15/23 08:38 Date of Service: 03/30/23 EXAMINATION: US RETROPERITONEAL COMPLETE (RENAL) FINDINGS: RIGHT KIDNEY: 10.5 x 4.2 x 7.2 cm (SAG x AP x TRV). Multiple tiny renal calculi measuring approximately 2-3 mm. No hydronephrosis. Renal cortical thickness is normal. Limited visualization. LEFT KIDNEY: 10.5 x 6.1 x 5.4 cm (SAG x AP x TRV). Multiple tiny renal calculi measuring approximately 2-3 mm. No hydronephrosis. Renal cortical thickness is normal. Limited visualization. BLADDER: Well distended. Bilateral ureteral jets are demonstrated. Prevoid bladder volume is 432 mL. Postvoid bladder volume is 0 mL. Complex material within the urinary bladder is characteristic of debris. US/US retroperitoneal comp IMPRESSION: 1. Bilateral nonobstructive renal calculi. No hydronephrosis. 2. Complex material within the urinary bladder is characteristic of debris. Assessment & Plan Assessment & Plan (1) Nephrolithiasis: Code(s): N20.0 - Calculus of kidney (2) Microscopic hematuria: Code(s): R31.29 - Other microscopic hematuria (3) Complicated urinary tract infection: Code(s): N39.0 - Urinary tract infection, site not specified (4) Renal stones: Code(s): N20.0 - Calculus of kidney Plan In office urinalysis results reviewed with the patient today; as noted above Recent 24 hour urine results reviewed with the patient today; as noted above Recent renal ultrasound results reviewed with the patient today; as noted above. Discussed and stressed the importance of increasing water intake and decrease in sodium intake. Will obtain repeat 24 hour urine collection with lifestyle modifications as discussed. Continue adding 1 oz of lemon juice to water daily. Continue vitamin B6 as discussed and prescribed; refill provided Will obtain renal ultrasound in 6 months Follow-up in 6 months with imaging and 24 hour urine collection to be completed prior; or sooner with any issues, concerns, and or questions. Orders: Orders US renal BI 6 Months N20.0 - Calculus of kidney AMB Urinalysis Automated 04/15/23 Z13.9 - Encounter for screening, unspecified URORISK 6 Months N20.0 - Calculus of kidney Patient Instructions: The patient had an opportunity to ask questions regarding the treatment plan. All questions were answered. Physical exam, labs, and imaging were discussed and reviewed in detail. As well as risks, benefits, and discussion of treatment choices. No major barriers to understanding were identified. The patient expressed understanding and agreement with the above treatment plan. The patient was made aware they should contact our office by phone for worsening of their current condition, the appearance of new symptoms, or with any questions or concerns. Compliance is encouraged with any medications and follow up testing that is ordered. It is a privilege to be allowed the opportunity to participate in? your urological care.? Again, if you have any questions or concerns If you have any questions or concerns please do not hesitate to contact me. The office is [phone]. This note is constructed using voice recognition software. While every effort has been made to ensure accuracy panelboard operator errors may have been included. Yours sincerely, JENA Guerra-RODY Coding Level of Care Code Est Pt Level 3 (86716) Diagnoses Nephrolithiasis N20.0 Microscopic hematuria R31.29 Complicated urinary tract infection N39.0
== END 2023-04-15 10:15 | disposition home or self-care (01) ==
PROVIDERS: PCP Internal Medicine; Visit Provider Nurse Practitioner Family
DX: N20.0 Calculus of kidney (principal); R31.29 Other microscopic hematuria; N39.0 Urinary tract infection, site not specified
CPT/HCPCS: 99213

== ENCOUNTER → 2023-04-15 08:33 | Outpatient (BNVA) | payer OTHER, SELFPAY | PROVIDERS: PCP Internal Medicine; Visit Provider Nurse Practitioner Family | DX: N20.0 Calculus of kidney (principal); N39.0 Urinary tract infection, site not specified | CPT/HCPCS: 81003 ==

== ENCOUNTER 2023-10-09 08:49 | Outpatient (REF) | payer OTHER, SELFPAY ==
--- NOTE | ~2023-10-09 | US_ITS ---
EXAMINATION: US RETROPERITONEAL LIMITED (RENAL ONLY) CLINICAL INFORMATION: Calculus of kidney. COMPARISON: Ultrasound kidneys and bladder 03/30/2023. Ultrasound kidneys 09/01/2022. X-ray KUB 01/23/2021 and 12/25/2020. TECHNIQUE: Real-time imaging of the kidneys. Limited visualization due to bowel gas. FINDINGS: RIGHT KIDNEY: 11.3 x 4.6 x 5.4 cm (SAG x AP x TRV). No hydronephrosis. Multiple renal calculi, largest mid pole measures 5 mm. Renal cortical thickness is normal. Limited visualization. LEFT KIDNEY: 10.0 x 6.1 x 4.9 cm (SAG x AP x TRV). No hydronephrosis. Multiple renal calculi, largest lower pole measures 4 mm. Renal cortical thickness is normal. Limited visualization. US/US renal BI IMPRESSION: Bilateral nonobstructive renal calculi. No hydronephrosis.
== END 2023-10-09 08:50 | disposition home or self-care (01) ==
LOC: HO.US 08:49
PROVIDERS: PCP Internal Medicine; Visit Provider Nurse Practitioner Family
DX: N20.0 Calculus of kidney (principal)
CPT/HCPCS: 76775

== ENCOUNTER 2023-10-15 13:23 | Outpatient (AMB) | payer OTHER, SELFPAY ==
--- NOTE | 2023-10-15 13:28 | A.OFFVIS_ITS ---
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: No Accompanied by: Self / Same As Patient Allergies codeine [CODEINE] Allergy (Severe, Verified 10/15/23 20:51) ANAPHYLAXIS hydrocodone [From VICODIN] Allergy (Severe, Verified 10/15/23 20:51) CHEST TIGHTNESS acetaminophen [Percocet] Allergy (Intermediate, Verified 10/15/23 20:51) Unknown oxycodone [From PERCOCET] Adverse Reaction (Severe, Verified 10/15/23 20:51) THEY ARE TOO STRONG FOR MY BODY PAIN MEDS Adverse Reaction (Severe, Uncoded 10/15/23 20:51) PT STATES ONLY TAKES MOTRIN-HAS OVERDOSE RX TO STRONGER Medication List - Last Reconciled 10/15/23 by JENA Guerra-RODY pyridoxine (vitamin B6) 100 mg PO DAILY 90 days HPI Comments Details: Suma is a very pleasant 42-year-old female patient of Dr. Amezquita who was accompanied by her daughter at today's office visit. She presents to the office today for follow-up of her longstanding history of nephrolithiasis and recurrent urinary tract infections. In discussion with the patient today she reports to be doing and feeling well. Recent renal imaging results reviewed with the patient today. Bilateral kidneys with no hydronephrosis. Multiple renal calculi in the right kidney largest mid pole measuring approximately 5 mm. Left kidney with multiple renal calculi largest in the lower pole measuring a proximally 4 mm. Patient was to also have 24 hour urine collection prior to visit however patient reports receiving 24 hour urine kit just this week and was unable to complete it as she works during the week and will need to complete it on the weekend. Previous 24 hour urine collection noted urine volume low at 1.1 in goal was to increase urine output to 2-2.5 liters daily. Previously discussed hypercalciuria and potential for thiazide versus dietary changes. Will await 24 hour urine collection results to further assess at this time. In office urinalysis results reviewed with the patient today.She otherwise currently denies any bothersome urinary issues or concerns. When asked she denies urinary urgency, urinary frequency, incontinence, nocturia, hematuria, dysuria, foul smelling urine, changes to urinary stream, flank pain, fever, and or chills. She is happy with her current voiding parameters. Discussed importance of drinking plenty of fluid (water) daily for recurrent urinary tract infections as well as nephrolithiasis. She reports since her last office visit here she has been increasing her water intake. She otherwise offers no issues or concerns at this time. REPLACED BY [facility] Medical History Iron deficiency anemia Heartburn Renal stones Surgical History History of lithotripsy History of lithotripsy Social History Alcohol intake: current Alcohol intake frequency: holidays/special occasions only Patient Tobacco Use Status: Never used Tobacco Second Hand Smoke Exposure: No Review of Systems Const All systems reviewed & are unremarkable except as noted in HPI and below Reports no additional complaints Eyes Reports no additional complaints ENT Reports no additional complaints Card Reports no additional complaints Resp Reports no additional complaints GI Reports no additional complaints Reports as per HPI Musc Reports no additional complaints Neuro Reports no additional complaints Psych Reports no additional complaints Endo Reports no additional complaints Patel/Lymph Reports no additional complaints Aller/Immun Reports no additional complaints Physical Exam Const General: cooperative, healthy appearing, comfortable, no acute distress, well developed, alert and awake Orientation/consciousness: patient oriented x3 Limitations: no limitations HEENT Head: Yes normal to inspection, Yes normocephalic and Yes atraumatic Ears: hearing grossly normal bilaterally Eyes General: appearance normal, both eyes and all related structures Neck Neck: Yes normal visual inspection and Yes trachea midline Chest Chest palpation & inspection: normal inspection of the chest Resp Effort & Inspection: normal respiratory effort and able to speak in complete sentences Cardio Rate: regular rate GI Inspection: Yes normal to inspection General: Yes no CVA tenderness Back/Spine/Pelvis Back: no CVA tenderness Skin General skin exam: no rashes or lesions noted Neuro General: patient oriented x3 Extrem General: Yes normal to inspection Psych Appearance: grossly normal and well kempt Mental Status: mental status grossly normal Speech and movement: Normal speech and movement present and Clear speech present Affect: normal affect Attitude: cooperative Thought process: Normal thought process present Thought content: Normal thought content present Insight: Good insight present (Psych) Judgement: Good judgement present (Psych) Results AMB Urinalysis, Automated UA Leukoctes 15 Shelly/uL Last Edit by Vanessa Casarez on 10/15/23 13:48 UA Nitrite Negative Last Edit by Vanessa Casarez on 10/15/23 13:48 UA Urobilinogen 0.2 mg/dL Last Edit by Vanessa Casarez on 10/15/23 13:48 UA Protein 0 mg/dL Last Edit by Vanessa Casarez on 10/15/23 13:48 UA pH 6.5 Last Edit by Vanessa Casarez on 10/15/23 13:48 UA Blood 10 Douglas/uL Last Edit by [employer] Casarez on 10/15/23 13:48 UA Specific [place] 1.015 Last Edit by [employer] Casarez on 10/15/23 13:48 UA Ketone Negative Last Edit by Vanessa Casarez on 10/15/23 13:48 UA Bilirubin 0 mg/dL Last Edit by Vanessa Casarez on 10/15/23 13:48 UA Glucose 0 mg/dL Last Edit by Vanessa Casarez on 10/15/23 13:48 Results Reviewed Results Reviewed: Laboratory Last Values Urine pH (Auto) 6.5 10/15/23 13:30 Specific [place] (Auto) 1.015 10/15/23 13:30 Urine Protein (Auto) 0 mg/dL 10/15/23 13:30 Glucose (UA)(Auto) 0 mg/dL 10/15/23 13:30 Urine Ketones (Auto) Negative 10/15/23 13:30 Urine Blood (Auto) 10 Douglas/uL 10/15/23 13:30 Urine Nitrite (Auto) Negative 10/15/23 13:30 Urine Bilirubin (Auto) 0 mg/dL 10/15/23 13:30 Urine Urobilinogen (Auto) 0.2 mg/dL 10/15/23 13:30 Leukocyte Esterase (Auto) 15 Shelly/uL 10/15/23 13:30 Date of Service: 10/09/23 EXAMINATION: US RETROPERITONEAL LIMITED (RENAL ONLY) FINDINGS: RIGHT KIDNEY: 11.3 x 4.6 x 5.4 cm (SAG x AP x TRV). No hydronephrosis. Multiple renal calculi, largest mid pole measures 5 mm. Renal cortical thickness is normal. Limited visualization. LEFT KIDNEY: 10.0 x 6.1 x 4.9 cm (SAG x AP x TRV). No hydronephrosis. Multiple renal calculi, largest lower pole measures 4 mm. Renal cortical thickness is normal. Limited visualization. IMPRESSION: Bilateral nonobstructive renal calculi. No hydronephrosis. Assessment & Plan Assessment & Plan (1) Nephrolithiasis: Code(s): N20.0 - Calculus of kidney Category: Medical (2) Microscopic hematuria: Code(s): R31.29 - Other microscopic hematuria Category: Medical (3) Renal stones: Code(s): N20.0 - Calculus of kidney Category: Medical Plan In office urinalysis results reviewed with the patient today; as noted above Recent renal ultrasound results reviewed with the patient today; as noted above. Continue adding 1 oz of lemon juice to water daily. Continue vitamin B6 as discussed and prescribed; refill provided. She currently denies any bothersome urinary issues or concerns. She reports be happy with current voiding parameters. Follow-up in 1-3 months once 24 urine collection is completed; or sooner with any issues, concerns, and or questions. Orders: Orders AMB Urinalysis Automated 10/15/23 Z13.9 - Encounter for screening, unspecified Medications: New pyridoxine (vitamin B6) 100 mg PO DAILY 90 tabs 2RF 90 days Patient Instructions: The patient had an opportunity to ask questions regarding the treatment plan. All questions were answered. Physical exam, labs, and imaging were discussed and reviewed in detail. As well as risks, benefits, and discussion of treatment choices. No major barriers to understanding were identified. The patient expressed understanding and agreement with the above treatment plan. The patient was made aware they should contact our office by phone for worsening of their current condition, the appearance of new symptoms, or with any questions or concerns. Compliance is encouraged with any medications and follow up testing that is ordered. It is a privilege to be allowed the opportunity to participate in? your urological care.? Again, if you have any questions or case rns If you have any questions or concerns please do not hesitate to contact me. The office is [phone]. This note is constructed using voice recognition software. While every effort has been made to ensure accuracy electronic operator errors may have been included. Yours sincerely, Magalie Jackson, [place] [employer] Coding Level of Care Code Est Pt Level 3 (54791) Complex EM visit Add On G2211 Diagnoses Nephrolithiasis N20.0 Microscopic hematuria R31.29
== END 2023-10-15 14:11 | disposition home or self-care (01) ==
PROVIDERS: PCP Internal Medicine; Visit Provider Nurse Practitioner Family
DX: N20.0 Calculus of kidney (principal); R31.29 Other microscopic hematuria
CPT/HCPCS: 99213

== ENCOUNTER → 2023-10-15 13:23 | Outpatient (BNVA) | payer OTHER, SELFPAY | PROVIDERS: PCP Internal Medicine; Visit Provider Nurse Practitioner Family | DX: R31.29 Other microscopic hematuria (principal); N20.0 Calculus of kidney | CPT/HCPCS: 81003 ==

== ENCOUNTER 2023-11-04 08:07 | Outpatient (REF) | payer OTHER, SELFPAY ==
[2023-11-04 10:38] LABS: Appearance Urine Clear; Color Urine Dark Yellow; Glucose Urine UA Negative (Negative); Leukocyte Esterase Urine Negative (Negative); Nitrite Urine Negative (Negative); Specific Gravity - Urine >= 1.030 (1.005-1.025); UMIC TRIGGER UA YES; Urine Blood Trace (Negative); Urine Ketones Trace mg/dL (Negative); Urine Protein Trace mg/dL (Neg-Trace)
[2023-11-04 11:30] LABS: Bacteria Urine None Seen (None Seen); Hyaline Casts Urine 0-2 /LPF (0-2); RBC Urine 0-2 /HPF (0-2); Squamous Epithelial Cell Urine 0-2 /HPF (0-2); WBC Urine 0-5 /HPF (0-5)
== END 2023-11-04 08:08 | disposition home or self-care (01) ==
LOC: HO.LAB 08:07
PROVIDERS: PCP Internal Medicine; Visit Provider Nurse Practitioner Family
DX: N39.0 Urinary tract infection, site not specified (principal); N20.0 Calculus of kidney
CPT/HCPCS: 81001; 87086

== ENCOUNTER 2023-12-08 11:42 | Outpatient (AMB) | payer OTHER, SELFPAY ==
--- NOTE | 2023-12-08 11:43 | A.OFFVIS_ITS ---
Intake Visit Reasons: FOLLOW UP Intake Note: Patient presents today for follow up on: Nephrolithiasis and Litholink Results Urology Medications: none Blood Thinners: none Proof Operator Required: No Accompanied by: Self / Same As Patient Allergies codeine [CODEINE] Allergy (Severe, Verified 12/08/23 12:22) ANAPHYLAXIS hydrocodone [From VICODIN] Allergy (Severe, Verified 12/08/23 12:22) CHEST TIGHTNESS acetaminophen [Percocet] Allergy (Intermediate, Verified 12/08/23 12:22) Unknown oxycodone [From PERCOCET] Adverse Reaction (Severe, Verified 12/08/23 12:22) THEY ARE TOO STRONG FOR MY BODY PAIN MEDS Adverse Reaction (Severe, Uncoded 12/08/23 12:22) PT STATES ONLY TAKES MOTRIN-HAS OVERDOSE RX TO STRONGER Medication List - Last Reconciled 12/08/23 by JENA Guerra-RODY pyridoxine (vitamin B6) 100 mg PO DAILY 90 days HPI Comments Details: Suma is a very pleasant 43-year-old female patient of Dr. Amezquita who was accompanied by her daughter at today's office visit. She is being followed up on today via video telehealth for her longstanding history of nephrolithiasis and recurrent urinary tract infections. Recent Litholink results reviewed with the patient today. Discussed increase in sodium and decrease urine volume. Previous workup has also included a renal u/s 10/11 noting bilateral kidneys with no hydronephrosis. Multiple renal calculi in the right kidney largest mid pole measuring approximately 5 mm. Left kidney with multiple renal calculi largest in the lower pole measuring a proximally 4 mm. Patient with previous 24 urine collections noting low volume. We discussed at length importance of increase in volume to increase urine output to 2-2.5 liters daily. She does endorse to be adding excessive salt to food and potato chips. Discussed dietary modifications verses trial of potassium citrate 10 mEq b.i.d.. She otherwise currently denies any bothersome urinary issues or concerns. When asked she denies urinary urgency, urinary frequency, incontinence, nocturia, hematuria, dysuria, foul smelling urine, changes to urinary stream, flank pain, fever, and or chills. She is happy with her current voiding parameters. Discussed importance of drinking plenty of fluid (water) daily for recurrent urinary tract infections as well as nephrolithiasis. She otherwise offers no issues or concerns at this time. [facility] Medical History Iron deficiency anemia Heartburn Renal stones Surgical History History of lithotripsy History of lithotripsy Social History Alcohol intake: current Alcohol intake frequency: holidays/special occasions only Patient Tobacco Use Status: Never used Tobacco Second Hand Smoke Exposure: No Review of Systems Const All systems reviewed & are unremarkable except as noted in HPI and below Physical Exam Const General: cooperative, healthy appearing, comfortable, no acute distress, well developed, alert and awake Orientation/consciousness: patient oriented x3 Resp Effort & Inspection: normal respiratory effort and able to speak in complete sentences Neuro General: patient oriented x3 Psych Appearance: grossly normal and well kempt Speech and movement: Clear speech present Affect: normal affect Attitude: cooperative Thought process: Normal thought process present Thought content: Normal thought content present Insight: Fair insight present (Psych) Judgement: Fair judgement present (Psych) Telehealth Telehealth Telehealth Platform: [employer] Location of provider rendering services: practice address Location of patient: address on file Patient Identification confirmed using: Name, : Yes Telehealth method: video Patient verbally consented to treatment: Yes Patient verbally consented to billing insurance company: Yes Patient informed of any privacy concerns related to visit: Yes Minutes spent on Phone/Video with Pt.: 20 Assessment & Plan Assessment & Plan (1) Nephrolithiasis: Code(s): N20.0 - Calculus of kidney Category: Medical (2) Microscopic hematuria: Code(s): R31.29 - Other microscopic hematuria Category: Medical (3) Renal stones: Code(s): N20.0 - Calculus of kidney Category: Medical Plan 24 hour urine collection results reviewed with the patient today; as noted above. Discussed dietary modifications at length Continue adding 1 oz of lemon juice to water daily. Continue vitamin B6 as discussed and prescribed; refill provided. She currently denies any bothersome urinary issues or concerns. She reports be happy with current voiding parameters. Follow-up in 3 months once 24 urine collection is completed; or sooner with any issues, concerns, and or questions. Orders: Orders URORISK 3 Months N20.0 - Calculus of kidney Medications: Refilled pyridoxine (vitamin B6) 100 mg PO DAILY 90 tabs 2RF 90 days Patient Instructions: The patient had an opportunity to ask questions regarding the treatment plan. All questions were answered. Physical exam, labs, and imaging were discussed and reviewed in detail. As well as risks, benefits, and discussion of treatment choices. No major barriers to understanding were identified. The patient expressed understanding and agreement with the above treatment plan. The patient was made aware they should contact our office by phone for worsening of their current condition, the appearance of new symptoms, or with any questions or concerns. Compliance is encouraged with any medications and follow up testing that is ordered. It is a privilege to be allowed the opportunity to participate in? your urological care.? Again, if you have any questions or concerns If you have any questions or concerns please do not hesitate to contact me. The office is [phone]. This note is constructed using voice recognition software. While every effort has been made to ensure accuracy long wall mining machine tender errors may have been included. Yours sincerely, GERMAN Guerra Coding Level of Care Code Tele Est Pt Level 3 (70916) Diagnoses Nephrolithiasis N20.0 Microscopic hematuria R31.29
== END 2023-12-08 12:33 | disposition home or self-care (01) ==
LOC: HO.HUSH 11:42
PROVIDERS: PCP Internal Medicine; Visit Provider Nurse Practitioner Family
DX: N20.0 Calculus of kidney (principal); R31.29 Other microscopic hematuria
CPT/HCPCS: 99213

== ENCOUNTER → 2023-12-08 11:42 | Outpatient (BNVA) | payer OTHER, SELFPAY | PROVIDERS: PCP Internal Medicine; Visit Provider Nurse Practitioner Family ==

== ENCOUNTER 2024-02-19 15:19 | Outpatient (REF) | payer OTHER, SELFPAY ==
[2024-02-19 16:49] LABS: Appearance Urine Clear; Color Urine Yellow; Glucose Urine UA Negative (Negative); Leukocyte Esterase Urine Trace (Negative); Nitrite Urine Negative (Negative); Specific Gravity - Urine 1.025 (1.005-1.025); UMIC TRIGGER UA YES; Urine Blood Trace (Negative); Urine Ketones Trace mg/dL (Negative); Urine Protein Negative (Neg-Trace)
[2024-02-19 16:53] LABS: Bacteria Urine None Seen (None Seen); Hyaline Casts Urine 0-2 /LPF (0-2); Squamous Epithelial Cell Urine 0-2 /HPF (0-2); WBC Urine 0-5 /HPF (0-5)
== END 2024-02-19 15:20 | disposition home or self-care (01) ==
LOC: HO.HMGCLDS 15:19
PROVIDERS: PCP Internal Medicine; Visit Provider Nurse Practitioner Family
DX: N39.0 Urinary tract infection, site not specified (principal); N20.0 Calculus of kidney; R31.29 Other microscopic hematuria
CPT/HCPCS: 81001; 87086

== ENCOUNTER 2024-03-15 07:41 | Outpatient (AMB) | payer OTHER, SELFPAY ==
--- NOTE | 2024-03-15 07:51 | A.OFFVIS_ITS ---
Intake Visit Reasons: 3M f/u with litholink. Intake Note: Patient presents today for follow up on: Nephrolithiasis and Litholink Results Urology Medications: none Blood Thinners: none Adult Nurse Practitioner Required: No Accompanied by: Self / Same As Patient Allergies codeine [CODEINE] Allergy (Severe, Verified 03/15/24 08:28) ANAPHYLAXIS hydrocodone [From VICODIN] Allergy (Severe, Verified 03/15/24 08:28) CHEST TIGHTNESS acetaminophen [Percocet] Allergy (Intermediate, Verified 03/15/24 08:28) Unknown oxycodone [From PERCOCET] Adverse Reaction (Severe, Verified 03/15/24 08:28) THEY ARE TOO STRONG FOR MY BODY PAIN MEDS Adverse Reaction (Severe, Uncoded 03/15/24 08:28) PT STATES ONLY TAKES MOTRIN-HAS OVERDOSE RX TO STRONGER Medication List - Last Reconciled 03/15/24 by JENA Guerra-RODY pyridoxine (vitamin B6) 100 mg PO DAILY 90 days HPI Comments Details: Suma is a very pleasant 43-year-old female patient of Dr. Amezquita who was accompanied by her daughter at today's office visit. She presents to the office today for follow-up of her longstanding history of nephrolithiasis and recurrent urinary tract infections. Of note, patient was seen approximately 3 months ago at which time your risk was ordered. These results were reviewed with the patient today. Urine creatinine excretion has varied between the present sample and passed samples by greater than 20%. Given the degree of discrepancy question of reliability. This was discussed with the patient today. In discussion with the patient today she earlier this month she had called the office as she had been experiencing UTI like symptoms with foul-smelling urine at which time she called the office and a urine culture was obtained 03/13 50,000 to 100,000 cfu/ml mixed bacterial [place] characteristic of urogenital contamination. Given her UTI like symptoms she was treated with Macrobid x7 days. Patient reports symptoms she had been experiencing has since subsided. She currently denies any bothersome urinary issues or concerns. She denies any UTI like symptoms. She denies urinary urgency, urinary frequency, incontinence, nocturia, hematuria, dysuria, foul smelling urine, changes to urinary stream, flank pain, fever, and or chills. She is happy with her current voiding parameters. Previous workup has included renal u/s 10/11 noting bilateral kidneys with no hydronephrosis. Multiple renal calculi in the right kidney largest mid pole measuring approximately 5 mm. Left kidney with multiple renal calculi largest in the lower pole measuring a proximally 4 mm. Patient with previous 24 urine collections noting low volume. We discussed at length importance of increase in volume to increase urine output to 2-2.5 liters daily. She otherwise offers no issues or concerns at this time. [facility] Medical History Iron deficiency anemia Heartburn Renal stones Surgical History History of lithotripsy History of lithotripsy Social History Alcohol intake: current Alcohol intake frequency: holidays/special occasions only Patient Tobacco Use Status: Never used Tobacco Second Hand Smoke Exposure: No Review of Systems Const All systems reviewed & are unremarkable except as noted in HPI and below Physical Exam Const General: cooperative, healthy appearing, comfortable, no acute distress, well developed, alert and awake Nutritional Appearance: average body habitus Orientation/consciousness: patient oriented x3 Limitations: no limitations HEENT Head: Yes normal to inspection, Yes normocephalic and Yes atraumatic Ears: hearing grossly normal bilaterally Eyes General: appearance normal, both eyes and all related structures Neck Neck: Yes normal visual inspection and Yes trachea midline Chest Chest palpation & inspection: normal inspection of the chest Resp Effort & Inspection: normal respiratory effort and able to speak in complete sentences Cardio Rate: regular rate GI Inspection: Yes normal to inspection General: Yes no CVA tenderness Back/Spine/Pelvis Back: no CVA tenderness Skin General skin exam: no rashes or lesions noted Neuro General: patient oriented x3 Extrem General: Yes normal to inspection Psych Appearance: grossly normal and well kempt Mental Status: mental status grossly normal Speech and movement: Clear speech present Affect: normal affect Attitude: cooperative Thought process: Normal thought process present Thought content: Normal thought content present Insight: Fair insight present (Psych) Judgement: Fair judgement present (Psych) Results AMB Urinalysis, Automated UA Leukoctes 0 Shelly/uL Last Edit by Pentah[employer]ie Casarez on 03/15/24 08:27 UA Nitrite Last Edit by [employer]et[employer] on 03/15/24 08:27 UA Urobilinogen 0.2 mg/dL Last Edit by [employer] Vet[employer]andy on 03/15/24 08:27 UA Protein 15 mg/dL Last Edit by [employer] on 03/15/24 08:27 UA pH 6.0 Last Edit by [employer] VetDCsandy on 03/15/24 08:27 UA Blood 25 Douglas/uL Last Edit by [employer] Communications[employer]andy on 03/15/24 08:27 UA Specific [place] 1.030 Last Edit by [employer] Communicationssandy on 03/15/24 08:27 UA Ketone Last Edit by [employer] VetDCsandy on 03/15/24 08:27 UA Bilirubin 0 mg/dL Last Edit by [employer] Communicationssandy on 03/15/24 08:27 UA Glucose 0 mg/dL Last Edit by [employer] VetDCsandy on 03/15/24 08:27 Assessment & Plan Assessment & Plan (1) Complicated urinary tract infection: Code(s): N39.0 - Urinary tract infection, site not specified Category: Medical (2) Renal stones: Code(s): N20.0 - Calculus of kidney Category: Medical (3) Nephrolithiasis: Code(s): N20.0 - Calculus of kidney Category: Medical (4) Microscopic hematuria: Code(s): R31.29 - Other microscopic hematuria Category: Medical Plan 24 hour urine collection results reviewed with the patient today; as noted above; question of discrepancy Discussed dietary modifications at length Continue adding 1 oz of lemon juice to water daily. Continue vitamin B6 as discussed and prescribed. Discussed, educated, and stressed the importance of adequate hydration relation to UTI like symptoms, nephrolithiasis, and overall health and well-being She currently denies any bothersome urinary issues or concerns. She reports be happy with current voiding parameters. Follow-up in 3 months with 24 urine collection and imaging to be completed prior; or sooner with any issues, concerns, and or questions. Orders: Orders US renal BI 3 Months N20.0 - Calculus of kidney AMB Urinalysis Automated Today Z13.9 - Encounter for screening, unspecified URORISK 3 Months N20.0 - Calculus of kidney Patient Instructions: The patient had an opportunity to ask questions regarding the treatment plan. All questions were answered. Physical exam, labs, and imaging were discussed and reviewed in detail. As well as risks, benefits, and discussion of treatment choices. No major barriers to understanding were identified. The patient expressed understanding and agreement with the above treatment plan. The patient was made aware they should contact our office by phone for worsening of their current condition, the appearance of new symptoms, or with any questions or concerns. Compliance is encouraged with any medications and follow up testing that is ordered. It is a privilege to be allowed the opportunity to participate in? your urological care.? Again, if you have any questions or concerns If you have any questions or concerns please do not hesitate to contact me. The office is [phone]. This note is constructed using voice recognition software. While every effort has been made to ensure accuracy piece goods packer errors may have been included. Yours sincerely, GERMAN Guerra Coding Level of Care Code Est Pt Level 3 (31928) Diagnoses Complicated urinary tract infection N39.0 Renal stones N20.0 Microscopic hematuria R31.29
== END 2024-03-15 08:38 | disposition home or self-care (01) ==
PROVIDERS: PCP Internal Medicine; Visit Provider Nurse Practitioner Family
DX: N39.0 Urinary tract infection, site not specified (principal); N20.0 Calculus of kidney; R31.29 Other microscopic hematuria; Z13.9 Encounter for screening, unspecified
CPT/HCPCS: 99213

== ENCOUNTER → 2024-03-15 07:41 | Outpatient (BNVA) | payer OTHER, SELFPAY | PROVIDERS: PCP Internal Medicine; Visit Provider Nurse Practitioner Family | DX: N39.0 Urinary tract infection, site not specified (principal); N20.0 Calculus of kidney; R31.29 Other microscopic hematuria | CPT/HCPCS: 81003 ==

== ENCOUNTER 2024-06-09 16:26 | Outpatient (REF) | payer OTHER, SELFPAY ==
--- NOTE | ~2024-06-09 | US_ITS ---
CLINICAL HISTORY: N20.0 - Calculus of kidney US Renal Comparison: None Findings: Right kidney normal size and echotexture, 11.0 cm length. Multiple right renal calculi, largest of which are in the interpolar kidney measuring 5 mm, lower pole kidney measuring 4 mm, and upper pole kidney measuring 4 mm. Left kidney normal size and echotexture, 10.3 cm length. Multiple calculi, largest of which are in the interpolar kidney measuring 3 mm, the interpolar/lower pole kidney measuring 3 mm, the interpolar/upper pole kidney measuring 4 mm. No hydronephrosis of either kidney. Normal color Doppler IMPRESSION: 1. Nonobstructing bilateral renal calculi. This document has been electronically signed by: Redd Beltran MD on 06/10/2024 17:31:07
--- OUTSIDE RECORDS SUMMARY | 2024-06-09 16:49 | XMS_ITS | Data Portability ---
Author Organization [facility] Home Service Address [address] [place] [address] Assessment No assessment recorded. Plan of Treatment Reminders Order Date Submit Date Provider Last Modified By Organization Details Last Modified Time Details Appointments None recorded. Lab CMP, serum or plasma 2022 023 [facility], [address] [place] [address], [address], 3 12:11:53 CBC w/ auto diff 2022 023 [facility], [address] [place] [address], [address], 3 16:40:30 lipid panel, blood 2022 023 [facility], [address] [place] [address], [address], 3 16:40:31 iron + TIBC + ferritin, serum 2022 023 [facility], [address] [place] [address], [address], 3 16:40:30 vitamin D, 25-hydroxy , total, serum 2022 023 [facility], [address] [place] [address], [address], 3 16:40:31 TSH, serum or plasma 2022 023 [facility], [address] [place] [address], [address], 3 16:40:31 vitamin B12, serum 2022 023 [facility], [address] [place] [address], [address], 3 16:40:30 vitamin D, 25-hydroxy , total, serum 2021 022 [facility], [address] [place] [address], [address], 2 13:45:20 vitamin B12 + folate, serum or blood 2021 [facility], [address] [place] [address], [address], 2 13:45:20 TSH + free T4, serum 2021 022 [facility], [address] [place] [address], [address], 2 13:45:20 iron + TIBC + ferritin, serum 2021 022 [facility], [address] [place] [address], [address], 2 13:45:20 CBC w/ auto diff 2021 022 [facility], [address] [place] [address], [address], 2 13:45:20 TSH + free T4, serum 2021 022 [facility], [address] [place] [address], [address], 2 16:30:16 vitamin D, 25-hydroxy , total, serum 2021 [facility], [address] [place] [address], [address], 16:30:16 iron + TIBC + ferritin, serum 2021 [facility], [address] [place] [address], [address], 16:30:16 vitamin B12 + folate, serum or blood 2021 [facility], [address] [place] [address], [address], 16:30:16 CBC w/ auto diff 2021 [facility], [address] [place] [address], [address], 16:30:16 CMP, serum or plasma 2021 [facility], [address] [place] [address], [address], 12:14:27 ESR (erythrocy te sedimentat ion rate), blood 2021 [facility], [address] [place] [address], [address], 16:30:16 C-reactive protein, quantitati ve, serum or plasma 2021 [facility], [address] [place] [address], [address], 16:30:17 culture, urine + sensitivit y 2020 021 [facility], [address] [place] [address], [address], 1 10:07:12 urinalysis , dipstick 2020 021 [email or web address], [address] [facility], [address], [place], [address], 1 10:27:07 Referral sleep medicine referral - please consider for home sleep test 2022 023 [email or web address], [address], [address], [place], [address], 3 09:09:48 vestibular therapy referral 2021 022 [email or web address], [address], [place], [address], 2 10:34:30 ENT surgery referral 2021 022 [email or web address] , [address], [address], [place], [address], 2 10:34:32 Procedures None recorded. Surgeries None recorded. Imaging CT, head + brain, w/o contrast 2021 022 [facility], [address] [place], [address], 2 08:33:49 XR, cervical spine, 2 or 3 view 2021 022 [facility] Scheduling, [address] [place], [address], 2 16:52:25 XR, kidney + ureter + bladder 2020 021 [facility], [address] [place], [address], 1 11:03:06 US, kidney - r/o hydronephr osis, inflammati on around the bilateral kidneys indicating possible infection 2020 021 [facility] Sched[facility], [address] [place], [address], 1 08:58:34 Medication Orders Tamiflu 75 mg capsule [address] [id number], [address] [place], [place], [id number], 3 15:59:59 azithromyc in 250 mg tablet [address] [facility]555, [facility] [place], [place], [id number], 3 15:59:07 meclizine 12.5 mg tablet 2021 022 [email or web address] [facility]27400, [address] [place], [place], [id number], 4 16:52:49 ondansetro n 8 mg disintegra ting tablet [address] [facility]92123, [address] [place], [place], [id number], 3 15:59:19 ciprofloxa anusha 500 mg tablet 2020 021 [facility]03486, [facility] [place], [place], [id number], 2 16:13:58 Patient TargetsNo targets recorded. Patient Instructions Encounter Date Encounter Id Patient Instructions Last Modified By Organization Details Last Modified Time 06/03/2021 [id number] lexie maneuver a t home for vertigo: exercises [email or web address] Not available 06/03/2021 16:39:45 08/18/2022 [id number] sleep apnea: car e instructions [email or web address] Not available 08/18/2022 16:36:52 Reason for Referral Vestibular Therapy Referral for Vertigo ongoing vertigo symptoms Referring Physician: Renae Solano, Internal Medicine, Encounter Date: 08/26/2021 ENT Surgery Referral for Rupal tigo ongoing vertigo symptoms, constant, no change with medications Referring Physician: Renae Solano, Internal Medicine, Encounter Date: 08/26/2021 Sleep Medicine Referral for Sleep apnea please consider for home sleep test Referring Physician: Oni Amezquita, Internal Medicine, Encounter Date: 08/18/2022 Results Created Date Observation Date Name Description Value Unit Range Abnormal Flag Note LastModifiedBy Organization Detail LastModifiedTime 12/27/19 21 12/25/2020 XR, kidne y + urete r + bladd er No observ ation record ed. [email or web address] [facility] Central Scheduling [address] [place], [address], 12/26/2020 11:30:03 06/04/19 22 06/04/2021 XR, cervi demarcus spine , 2 or 3 view No observ ation record ed. [facility] (Medical Records) [address] [place], [address], 06/05/2021 09:46:02 09/13/19 22 09/12/2021 CT, head + brain , w/o contr ast No observ ation record ed. [email or web address] [facility] (Medical Records) [address] [place], [address], 09/27/2021 06:56:48 02/24/20 23 01/27/2023 sleep study , diagn ostic (PROC ) No observ ation record ed. [email or web address] [facility] [address] [place] [address], [place], [address], 02/23/2023 18:38:58 04/01/20 23 03/30/2023 ultra sound yonatan nce for injec tion (PROC ) No observ ation record ed. [email or web address] [address] [place], [address], 04/01/2023 14:01:02 10/28/19 24 10/09/2023 US, renal No observ ation record ed. [email or web address] [facility] (Medical Records) [address] [facility], [place], [address], 10/30/2023 10:16:52 Result Notes None recorded. Problems Name Problem SNOMED Code Status Onset Date Resolution Date Notes Provider Name and Address Organization Details Recorded Time Acute urinary tract infection 093632438 Active 2017 [address] [place] [address], [address], [facility] 8 14:12:09 COVID-19 582550149 Active 2020 021 [facility] 1 10:40:27 Vertigo 552003586 Active 2021 HAO GUILLORY [address] [place] [address], [address], [facility] 2 13:36:09 Headache 44354809 Active 2021 HAO GUILLORY [address] [place] [address], [address], [facility] 2 13:38:47 Fatigue 96476897 Active 2021 AHO GUILLORY [address] [place] [address], [address], [facility] 2 13:41:39 Influenza- like symptoms 367994584 Active 2021 Oni Amezquita DO [address] [place] [address], [address], [facility] 2 15:09:27 Sleep apnea 31606101 Active 2022 Oni Amezquita DO [address] [place] [address], [address], [facility] 3 16:35:10 Streptococ demarcus sore throat 68572007 Active 2023 HAO GUILLORY [address] [place], [address], [facility] 4 09:23:02 Candidiasi s of vagina 56543935 Active 2023 HAO GUILLORY [address] [place], [address], [facility] 4 10:02:21 Recurrent urinary tract infection 396793701 [facility] 09[facility]09:14 Iron deficiency anemia 11466935 [facility] 09:09:22 History of calculus of kidney 237883331 Active [facility] 09:09:37 Problem Notes None recorded. Procedures Surgical History Date Name Laterality Status Provider Name and Address Organization Details Recorded Time 2 Cerumen Removal completed HAO GUILLORY [address] [place] [address], [address], [facility] 06/03/2021 16:42:58 9 I&D completed July LUIGI Arroyo [address] [place], [address], [facility] 02/02/2019 12:19:00 Imaging Results Imaging Date Name Status LastModified by Organiz ation Details LastModified Time 12/25/2020 XR, kidney + ureter + bladder completed [facility] Central Scheduling [address] [place], [address], 12/26/2020 11:30:03 06/04/2021 XR, cervical spine, 2 or 3 view completed [facility] (Medical Records) [address] [place] [address], [address], 06/05/2021 09:46:02 09/12/2021 CT, head + brain, w/o contrast completed [email or web address] [facility] (Medical Records) [address] [place], [address], 09/27/2021 06:56:48 01/27/2023 sleep study, diagnostic (PROC) completed [email or web address] [facility] [address] [place], [address], 02/23/2023 18:38:58 03/30/2023 ultrasound guidance for injection (PROC) completed [email or web address] [address] [place], [address], 04/01/2023 14:01:02 10/09/2023 US, renal completed [email or web address] [facility] (Medical Records) [address] [place], [address], 10/30/2023 10:16:52 Procedure Notes None recorded. Medical Equipment None Reported. Allergies Allergen ID Allergen Name Allergen Category Reaction Reaction Severity Criticality Documentation Date Start Date Code Code System Note Provider Name and Address Organization Details Recorded Time 1278 acetamino phen / hydrocodo ne medicatio n Not available Not available Not available 08/28/201774141 2 RxNorm too stron g even at lowes t dose Megha [facility] [address] [place], [address], [facility] 8 15:17:46 1279 codeine medicatio n anaphylax is Not available Not available 08/28/2017 2670 RxNorm Nelda kwon [facility] 8 09:08:50 1280 acetamino phen / oxycodone medicatio n Not available Not available Not available 08/28/201795744 3 RxNorm too stron g even at lowes t dose July [facility] [address] [place], [address], [facility] 8 15:17:36 3539 cephalexi n medicatio n vomiting Not available Not available 02/02/2019 2231 RxNorm heada dulce, dizzy Arminda [facility] 9 11:47:26 Medications Name Sig Start Date Stop Date Status Note LastModified by Organization Details LastModified Time cefuroxime axetil 250 mg tablet Take 1 tablet every 12 hours by oral route. 08/10 completed Not Available Not Available Not Available cetirizine 10 mg tablet Take 1 tablet every day by oral route. active Not Available Not Available No t Available azithromyci n 250 mg tablet TAKE 2 TABLET BY MOUTH ONCE DAILY FOR 1 DAY THEN 1 TABLET BY MOUTH ONCE DAILY FOR 4 DAYS 08/18 completed Not Available Not Available Not Available fluconazole 150 mg tablet TAKE 1 TABLET BY MOUTH EVERY DAY FOR 2 DAYS DIRECTED active Not Available Not Available No t Available ondansetron HCl 8 mg tablet TAKE 1 TABLET BY MOUTH TWICE DAILY FOR 14 DAYS 06/03 completed Not Available Not Available Not Available meclizine 12.5 mg tablet TAKE 1 TABLET BY MOUTH THREE TIMES DAILY FOR 14 DAYS NEEDED active Not Available Not Available No t Available ciprofloxac in 500 mg tablet TAKE 1 TABLET BY MOUTH EVERY 12 HOURS FOR 7 DAYS 06/03 completed Not Available Not Available Not Available sulfamethox azole 800 mg-trimetho prim 160 mg tablet Take 1 tablet every 12 hours by oral route for 7 days. 02/15 completed Not Available Not Available Not Available ondansetron 8 mg disintegrat ing tablet DISSOLVE 1 TABLET ON THE TONGUE TWICE DAILY FOR 14 DAYS NEEDED 08/18 completed Not Available Not Available Not Available amoxicillin 875 mg tablet TAKE 1 TABLET BY MOUTH EVERY 12 HOURS FOR 7 DAYS active Not Available Not Available No t Available famotidine 20 mg tablet 11/10 completed Not Available Not Available Not Available tamsulosin 0.4 mg capsule TAKE 1 CAPSULE BY MOUTH AT BEDTIME FOR 14 DAYS 06/03 completed Not Available Not Available Not Available phenazopyri dine 100 mg tablet TAKE 1 TABLET BY MOUTH THREE TIMES DAILY NEEDED FOR PAIN FOR 5 DAYS 08/18 completed Not Available Not Available Not Available cephalexin 500 mg capsule 02/02 completed Not Available Not Available Not Available oseltamivir 75 mg capsule TAKE 1 CAPSULE BY MOUTH TWICE DAILY FOR 5 DAYS 08/18 completed Not Available Not Available Not Available nitrofurant oin macrocrysta l 100 mg capsule TAKE 1 CAPSULE BY MOUTH TWICE DAILY FOR 10 DAYS active Not Available Not Available No t Available ranitidine 150 mg tablet Take 1 tablet twice a day by oral route. active Not Available Not Available No t Available pyridoxine (vitamin B6) 100 mg tablet TAKE 1 TABLET BY MOUTH EVERY DAY 06/03 completed Not Available Not Available Not Available levofloxaci n 500 mg tablet Take 1 tablet every 24 hours by oral route. 05/19 completed Not Available Not Available Not Available methylpredn isolone 4 mg tablets in a dose pack as directed 08/16 completed Not Available Not Available Not Available medroxyprog esterone 150 mg/mL intramuscul ar suspension 02/15 completed Not Available Not Available Not Available naproxen 500 mg tablet Take 1 tablet twice a day by oral route for 15 days. 06/20 completed Not Available Not Available Not Available amoxicillin 875 mg-potassiu m clavulanate 125 mg tablet Take 1 tablet every 12 hours by oral route for 7 days. 06/20 completed Not Available Not Available Not Available nitrofurant oin monohydrate /macrocryst als 100 mg capsule TAKE 1 CAPSULE BY MOUTH TWICE DAILY FOR 7 DAYS active Not Available Not Available No t Available cholecalcif tracie (vitamin D3) 50 mcg (2,000 unit) capsule TAKE 1 CAPSULE BY MOUTH EVERY DAY active Not Available Not Available No t Available Vitamin B12 1 tablet a day active Not Available Not Available No t Available Vitals Date Recorded Body height Body mass index (BMI) Body weight Oxygen saturation Oxygen saturation in Arterial blood by Pulse oximetry Heart rate Systolic blood pressure Diastolic blood pressure Provider Name and Address Organization Details Last Updated DateTime 1 152.4 cm 27.1 kg/m2 73421.3 4 g 98 % 98 % 73 /min 110 mm[Hg] 70 mm[Hg] [facility] 1 09:49:07 Date Recorded Body height Systolic blood pressure Diastolic blood pressure Provider Name and Address Organization Details Last Updated DateTime 06/03/2021 152.4 cm 110 mm[Hg] 70 mm[Hg] [facility] 06/03/2021 16:18:04 Date Recorded Body height Heart rate Oxygen saturation Oxygen saturation in Arterial blood by Pulse oximetry Systolic blood pressure Diastolic blood pressure Provider Name and Address Organization Details Last Updated DateTime 2 152.4 cm 83 /min 96 % 96 % 110 mm[Hg] 60 mm[Hg] Nelda Quinones [facility] 2 13:30:56 Date Recorded Body height Body mass index (BMI) Body weight Heart rate Oxygen saturation Oxygen saturation in Arterial blood by Pulse oximetry Systolic blood pressure Diastolic blood pressure Provider Name and Address Organization Details Last Updated DateTime 3 152.4 cm 26.4 kg/m2 36287.9 7 g 78 /min 98 % 98 % 110 mm[Hg] 70 mm[Hg] Christina Dumont [facility] 3 16:01:30 Social History Question Answer Notes LastModified by Organizat ion Details LastModified Time Tobacco Smoking Status Never Smoker Arminda Andrews [facility] 11/10/2017 15:00:46 What Was The Date Of Your Most Recent Tobacco Screening? 08/18/2022 [email or web address] Information not available 08/18/2022 Do You Or Have You Ever Used Any Other Forms Of Tobacco Or Nicotine? No [email or web address] Information not available 08/26/2021 Sex: Unknown Functional Status None recorded. Mental Status None recorded. Family History Nothing Reported. Medical History No medical history recorded. Gynecological History Statement/Question Response Date of LMP 05/28/2019 Obstetrics History GPAL:G 0 P 0 0 0 0 Immunizations Vaccine Type Date Status Note Provider Nam e and Address Organization Details Recorded Time COVID-19, mRNA, LNP-S, PF, 100 mcg/0.5mL dose or 50 mcg/0.25mL dose 1 completed Anita kwon [facility] 12/25/2020 09:52:09 Influenza, split virus, quadrivalent, preservative 9 completed Nelda Quinones [facility] 06/21/2019 14:51:00 COVID-19, mRNA, LNP-S, PF, 100 mcg/0.5mL dose or 50 mcg/0.25mL dose 1 completed Annette kwon [facility] 05/23/2020 10:40:10 Past Encounters Encounter ID Performer Location Encounter Start Date Encounter Closed Date Diagnosis/Indication Diagnosis SNOMED-CT Code Diagnosis ICD10 Code Diagnosis Note [id number] July Cruz [facility] [address] [facility] [place], [place] [address] 11/10/2017 14:45:08 11/10/2017 16:04:56 Acute urinary tract infection 864800640 N39.0 counsellin g on prevention Right flank pain 0687744 09 R10.9 ? kidney stone cannot tolerate narcotic pain medication s ibuprofen and tylenol lots of fluids [id number] July Cruz [facility] [address] [facility] [address] [place] [address] 12/04/2017 13:51:15 12/04/2017 14:55:59 Acute urinary tract infection 718971324 N39.0 HCG negative Acid reflux 258967704 K2 1.9 diet call if worsens, will rx prilose Amenorrhea 95154812 N91. 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 if this could be source of bleeding?? will need to see urology and also will get w/u with UA Iron deficiency 85536583 E61.1 will supplement after wortkup start hemoccult cards ? check for hemoglobin opathy? [id number] Piper Wu NP, [facility] [address] [facility],[place] [address] 03/31/2018 11:21:52 03/31/2018 16:08:09 Cystitis 96830862 N30.90 [id number] Piper Wu NP, [facility] [address] [facility],[place] [address] 05/19/2018 15:34:38 05/21/2018 10:41:16 Acute maxillary sinusitis 97131034 J01.00 History of calculus of kidney 972183191 Z87.442 scheduled [place]otrips y [id number] Piper Wu NP, [facility] [address] [facility],[place] [address] 08/10/2018 15:42:50 08/10/2018 16:15:06 Pruritic rash 39658656 L28.2 [id number] Piper Wu NP, [facility] [address],[place] [address] 08/16/2018 14:52:06 08/16/2018 16:41:01 Dysuria 14298858 R30.0 Pruritic rash 71014798 L 28.2 [id number] [facility] [address], [place] [address] 02/02/2019 11:42:26 02/02/2019 12:30:26 Abscess 438419688 L02.91 abscess epidermoid cyst drained today but due to inadequate anesthesia , will defer cyst removal warm compress gentle massage will do 1 week of bactrim and return for cyst excision next week Adverse re action to drug 16860895 T50.905A vomiting in response to keflex keflex d/cd [id number] [facility] [address] [place] [address],[place] [address] 02/15/2019 13:55:24 02/15/2019 14:29:09 Knee pain 59419250 M25.569 rest ice brace if needed nsaids fu if sx dont improve resolve after 2-3 weeks Abscess 039758907 L02.91 resolved, no need for further incision Adverse re action to drug 92828192 T50.905A no issues with bactrim [id number] LUIGI Taylor [facility] [address] [facility] [address] [place] [address] 05/16/2019 14:40:16 05/16/2019 15:12:31 Acute maxillary sinusitis 26173943 J01.00 mucinex, sudafed, flonase tylenol if needed [id number] Oni Amezquita DO [facility] [address] [facility] [address] [place] [address] 06/21/2019 14:46:19 06/21/2019 15:39:12 Adult health examination 132239182 Z00.00 excellent health Active or passive immunization 181145869 Z23 utd Subluxatio n of hip joint 526690822 S73.001A will need xr [id number] HAO GUILLORY [facility] [address] [facility],[place] [address] 05/25/2020 13:44:26 05/25/2020 16:24:49 Acute pyelonephritis 88817608 N10 will fu with results of culture given hx of severe kidney infections would rather her start abx, than wait on culture Vitamin D deficiency 347 26568 E55.9 needs refill Nausea 377169342 R11.0 will start on anti-emeti c for patient to be able to take her medication [id number] [facility] [address] [facility],[place] [address] 12/25/2020 09:39:28 12/25/2020 14:20:37 Dysuria 16152895 R30.9 fu with culture Kidney stone 06592708 N2 0.0 r/o kidney stone infection Acute pyelonephritis 366 59377 N10 ?kidney infectionU S and XR for fu r/o kidney stone or infection [id number] HAO GUILLORY [facility] [address] [facility] [address] [place] [address] 06/03/2021 16:11:26 06/04/2021 08:41:38 Fatigue 92834129 R53.83 will start with work up for the fatigue Headache 92688542 R51.0 will fu with testing of the cervical spine given radiculopa thy symptoms Vertigo 853148967 R42 will start on meclizine 12.5 mg and zofrangive n reaction to the ear flush, mostly inner [id number] HAO GUILLORY [facility] [address] [facility],[place] [address] 08/26/2021 13:26:38 08/26/2021 16:25:51 Vertigo 943840570 R42 will fu with full work up Headache 24740375 R51.[address] for assessment of ongoing vertigo and headaches Fatigue 00424370 R53.83 will start with work up for the fatigue [id number] Oni Amezquita [facility] Medicine [address] [facility],[place] [address] 04/01/2022 10:13:32 04/01/2022 16:12:47 Influenza-like symptoms 936544918 R68.89 [id number] Oni Amezquita [facility] [address],[place] [address] 08/18/2022 15:55:10 08/18/2022 17:02:39 Active or passive immunization [id number] Z23 utd Adult [facility] th examination [id number] Z00.00 excellent health but having excessive fatiguedis cussed her sleep has been snoring a lotpt will need to call me for results approx 4-5 days after test Fatigue [id number] R53.83 Sleep apnea [id number] G47 .30 Health Concerns Section Related Observation LastModified by Organization Detai ls LastModified Time None Recorded Concern Status LastModified by Organization Details LastModified Time None Recorded Advance Directives Directive None Recorded Payers Encounter Date Sequence Insurance Name Policy Number Policy Nunez Covered Member ID Nunez Member ID Guarantor Name 12/25/2020 1 [facility] [id number] 1 Suma Iverson [id number] Suma Iverson 06/03/2021 1 [facility] [id number] 1 Suma Burger Kishor [id number] Sharim Kishor 08/26/2021 1 [facility] [id number] 1 Suma Burger Kishor [id number] Sharim Kishor 04/01/2022 1 [facility] [id number] 1 Suma Burger Kishor [id number] Sharim Kishor 08/18/2022 1 [facility] [id number] 1 Suma Burger Kishor [id number] Suma Kishor Notes Date Note Type Note Provider Name a nd Address Organization Details Recorded Time 1 text/html ?kidney infection the patient reports about a week ago she had headaches, fatigue, with increasing back pain around the kidneys (hx of kidney stones)the patient states she just increased her hydration but her urination was not appropriate to her increased hydration status the patient reports that she urinated once today, the patient reports that she only had coffee the patient has CVA tenderness R>Lthe patient has hx of recurrent UTI, kidney infections, and stones HAO GUILLORY [address] [place], [address], [facility] 12/25/2020 10:12:26 2 text/html c/o dizziness the patient reports that she has been dizzy for the past few daysunrelated as symptoms appeared at different times, she has occipital pain that radiates down the left side into the arm this started after the dizziness happenedthe dizziness worsened with the patient has not had blood work in awhiledoes report weakness and fatigue with the dizziness, do want to r/o other caused besides parosysmal vertigo HAO GUILLORY [address] [place], [address], [facility] 06/03/2021 16:48:12 2 text/html f/u paperwork vertigo: the patient is still having vertigo, constant with worsening headache symptomsalso reports fatigue, but last check showed significant def in vitamin Dwill recheck levels and fuederll also have her see ENT and PT for the vertigowith new characteristics with the vertigo and headache, need CT to r/o other possiblities that may be causing it ie inner ear dysfunction or mass fatigue: recheck levels HAO GUILLORY [address] [place], [address], [facility] 08/26/2021 13:53:49 2 text/html patient is evaluated via tele/video assessment per patient consent during current pandemic had developed a sudden onset of fever and cough several days agocough was dry asa tickle now has harsh cough but was green but now nothing coming up and chest rattles feels windedfatigue is bad tooalso had 4 nose bleeds yesterday which is very unusualalso today had diarrheahaving pain in her flanks Oni Amezquita DO [address] [place], [address], [facility] 04/01/2022 15:10:11 3 text/html Annual WellnessReported bypatient.Diet and Nutrition:healthy diet Fracture Risk:no history of fractures; no recent explained fracture; no sudden unexplained fractures; no previous musculoskeletal injuries Physical Activity:exercises on a regular basis; recent increase in physical activity; good physical condition Additional Lifestyle Factors:no tobacco use; no alcohol intake; stopped drinking alcohol Depression Risk:never feels sad, empty, or tearful; no loss of interest in activities; no significant changes in weight; no sleep disturbances or insomnia; no agitation; no loss of energy; no feelings of worthlessness or guilt; no thoughts of suicide; no history of depression; no history of mood disorders Hearing:no loss of hearing Vision:no vision problemsNotes:fatigue is a big problem right nowstates is sleeping but has a 2 yr old at home Oni Amezquita DO [address] [place], [address], [facility] 08/18/2022 16:40:02 OBGyn Episode No OBEpisode recorded.
== END 2024-06-09 16:27 | disposition home or self-care (01) ==
LOC: HO.US 16:26
PROVIDERS: PCP Internal Medicine; Visit Provider Nurse Practitioner Family
DX: N20.0 Calculus of kidney (principal)
CPT/HCPCS: 76775

== ENCOUNTER → 2024-06-09 16:27 | Outpatient (BNV) | payer OTHER, SELFPAY | PROVIDERS: PCP Internal Medicine; Visit Provider Radiology Diagnostic Radiology | DX: N20.0 Calculus of kidney (principal) | CPT/HCPCS: 76775 ==

== ENCOUNTER 2024-06-16 07:43 | Outpatient (AMB) | payer OTHER, SELFPAY ==
--- NOTE | 2024-06-16 07:47 | A.OFFVIS_ITS ---
Intake Visit Reasons: 3m/US/litholink(ultrasound pending 06/09) Intake Note: Patient presents today for follow up on: Nephrolithiasis, Litholink and ultrasound results Imaging Completed:06/10/24 Urology Medications: Vitamin B6 Blood Thinners: none Brim Curler Required: No Accompanied by: Child Allergies codeine [CODEINE] Allergy (Severe, Verified 06/16/24 08:14) ANAPHYLAXIS hydrocodone [From VICODIN] Allergy (Severe, Verified 06/16/24 08:14) CHEST TIGHTNESS acetaminophen [Percocet] Allergy (Intermediate, Verified 06/16/24 08:14) Unknown oxycodone [From PERCOCET] Adverse Reaction (Severe, Verified 06/16/24 08:14) THEY ARE TOO STRONG FOR MY BODY PAIN MEDS Adverse Reaction (Severe, Uncoded 06/16/24 08:14) PT STATES ONLY TAKES MOTRIN-HAS OVERDOSE RX TO STRONGER Medication List - Last Reconciled 06/16/24 by JENA Guerra- pyridoxine (vitamin B6) 100 mg PO DAILY 90 days HPI Comments Details: Suma is a very pleasant 43-year-old female patient of Dr. Amezquita who was accompanied by her daughter at today's office visit. She presents to the office today for follow-up of her longstanding history of nephrolithiasis and recurrent urinary tract infections. In discussion with the patient today she reports since her last office visit here she had COVID as well as pneumonia in his still attempting to recover. She reports continuation of fatigue. She denies having had any bothersome urinary issues or concerns since her last office visit here. Recent renal imaging results reviewed with the patient today. 06/14 bilateral kidneys are normal in size and echotexture. Multiple bilateral nonobstructing renal calculi largest measuring 5 mm on the right side and 4 mm on the left side. We discussed discrepancy in Litholink collection. Will attempt to obtain different Litholink collection per patient request. She reports compliance with vitamin B6 and adequate hydration. She denies any UTI like symptoms. She denies urinary urgency, urinary frequency, incontinence, nocturia, hematuria, dysuria, foul smelling urine, changes to urinary stream, flank pain, fever, and or chills. She is happy with her current voiding parameters. She otherwise offers no issues or concerns at this time. [facility] Medical History Iron deficiency anemia Heartburn Renal stones Surgical History History of lithotripsy History of lithotripsy Social History Alcohol intake: current Alcohol intake frequency: holidays/special occasions only Patient Tobacco Use Status: Never used Tobacco Second Hand Smoke Exposure: No Review of Systems Const All systems reviewed & are unremarkable except as noted in HPI and below Physical Exam Const General: cooperative, healthy appearing, comfortable, no acute distress, well developed, alert and awake Nutritional Appearance: average body habitus Orientation/consciousness: patient oriented x3 Limitations: no limitations HEENT Head: Yes normal to inspection, Yes normocephalic and Yes atraumatic Ears: hearing grossly normal bilaterally Eyes General: appearance normal, both eyes and all related structures Neck Neck: Yes normal visual inspection and Yes trachea midline Chest Chest palpation & inspection: normal inspection of the chest Resp Effort & Inspection: normal respiratory effort and able to speak in complete sentences Cardio Rate: regular rate GI Inspection: Yes normal to inspection General: Yes no CVA tenderness Back/Spine/Pelvis Back: no CVA tenderness Skin General skin exam: no rashes or lesions noted Neuro General: patient oriented x3 Extrem General: Yes normal to inspection Psych Appearance: grossly normal and well kempt Mental Status: mental status grossly normal Speech and movement: Clear speech present Affect: normal affect Attitude: cooperative Thought process: Normal thought process present Thought content: Normal thought content present Insight: Fair insight present (Psych) Judgement: Fair judgement present (Psych) Results AMB Urinalysis, Automated UA Leukoctes 15 Shelly/uL Last Edit by Vanessa Casarez on 06/16/24 08:07 UA Nitrite Negative Last Edit by Vanessa Casarez on 06/16/24 08:07 UA Urobilinogen 0.2 mg/dL Last Edit by Vanessa Lilisandy on 06/16/24 08:07 UA Protein 15 mg/dL Last Edit by Vanessa Casarez on 06/16/24 08:07 UA pH 6.0 Last Edit by Vanessa Casarez on 06/16/24 08:07 UA Blood 10 Douglas/uL Last Edit by Vanessa Casarez on 06/16/24 08:07 UA Specific [place] 1.025 Last Edit by Vanessa Casarez on 06/16/24 08:07 UA Ketone Last Edit by Vanessa Casarez on 06/16/24 08:07 UA Bilirubin 1 mg/dL Last Edit by Vanessa Casarez on 06/16/24 08:07 UA Glucose 0 mg/dL Last Edit by Vanessa Casarez on 06/16/24 08:07 Results Reviewed Results Reviewed: Laboratory Last Values Urine pH (Auto) 6.0 06/16/24 08:04 Specific [place] (Auto) 1.025 06/16/24 08:04 Urine Protein (Auto) 15 mg/dL 06/16/24 08:04 Glucose (UA)(Auto) 0 mg/dL 06/16/24 08:04 Urine Blood (Auto) 10 Douglas/uL 06/16/24 08:04 Urine Nitrite (Auto) Negative 06/16/24 08:04 Urine Bilirubin (Auto) 1 mg/dL 06/16/24 08:04 Urine Urobilinogen (Auto) 0.2 mg/dL 06/16/24 08:04 Leukocyte Esterase (Auto) 15 Shelly/uL 06/16/24 08:04 Date of Service: 06/09/24 CLINICAL HISTORY: N20.0 - Calculus of kidney US Renal Comparison: None Findings: Right kidney normal size and echotexture, 11.0 cm length. Multiple right renal calculi, largest of which are in the interpolar kidney measuring 5 mm, lower pole kidney measuring 4 mm, and upper pole kidney measuring 4 mm. Left kidney normal size and echotexture, 10.3 cm length. Multiple calculi, largest of which are in the interpolar kidney measuring 3 mm, the interpolar/lower pole kidney measuring 3 mm, the interpolar/upper pole kidney measuring 4 mm. No hydronephrosis of either kidney. Normal color Doppler IMPRESSION: 1. Nonobstructing bilateral renal calculi. Assessment & Plan Assessment & Plan (1) Renal stones: Code(s): N20.0 - Calculus of kidney Category: Medical (2) Nephrolithiasis: Code(s): N20.0 - Calculus of kidney Category: Medical (3) Microscopic hematuria: Code(s): R31.29 - Other microscopic hematuria Category: Medical (4) Complicated urinary tract infection: Code(s): N39.0 - Urinary tract infection, site not specified Category: Medical Plan Results reviewed with the patient today; as noted above. 24 hour urine collection results reviewed with the patient today; as noted above; question of discrepancy again. Will attempt to obtain Litholink through [facility] Continue adding 1 oz of lemon juice to water daily. Continue vitamin B6 as discussed and prescribed. Will obtain renal ultrasound in 6 months Discussed, educated, and stressed the importance of adequate hydration relation to nephrolithiasis and overall health and well-being She currently denies any bothersome urinary issues or concerns. She reports be happy with current voiding parameters. Follow-up in 6 months with 24 urine collection and imaging to be completed prior; or sooner with any issues, concerns, and or questions. Orders: Orders US renal BI 6 Months N20.0 - Calculus of kidney AMB Urinalysis Automated Today Z13.9 - Encounter for screening, unspecified URORISK 6 Months N20.0 - Calculus of kidney Patient Instructions: The patient had an opportunity to ask questions regarding the treatment plan. All questions were answered. Physical exam, labs, and imaging were discussed and reviewed in detail. As well as risks, benefits, and discussion of treatment choices. No major barriers to understanding were identified. The patient ex pressed understanding and agreement with the above treatment plan. The patient was made aware they should contact our office by phone for worsening of their current condition, the appearance of new symptoms, or with any questions or concerns. Compliance is encouraged with any medications and follow up testing that is ordered. It is a privilege to be allowed the opportunity to participate in? your urological care.? Again, if you have any questions or concerns If you have any questions or concerns please do not hesitate to contact me. The office is [phone]. This note is constructed using voice recognition software. While every effort has been made to ensure accuracy conservation or heritage architect errors may have been included. Yours sincerely, Magalie Jackson DISABILITIES CAREGIVER- Coding Level of Care Code Est Pt Level 3 (91537) Diagnoses Renal stones N20.0 Microscopic hematuria R31.29 Complicated urinary tract infection N39.0
--- OUTSIDE RECORDS SUMMARY | 2024-06-16 07:47 | XMS_ITS | Data Portability ---
Author Organization [facility], Home Service Address [address] [place] [address] Assessment No assessment recorded. Plan of Treatment Reminders Order Date Submit Date Provider Last Modified By Organization Details Last Modified Time Details Appointments None recorded. Lab CMP, serum or plasma 2022 023 [facility], [address] [place] [address], [address], 3 12:11:53 CBC w/ auto diff 2022 023 [facility], [address] [place] [address], [address], 3 16:40:30 lipid panel, blood 2022 023 [facility], [address] [place] [address], [address], 3 16:40:31 iron + TIBC + ferritin, serum 2022 023 [facility], [address] [place] [address], [address], 3 16:40:30 vitamin D, 25-hydroxy , total, serum 2022 023 [facility], [address] [place] [address], [address], 3 16:40:31 TSH, serum or plasma 2022 023 [facility], [address] [place] [address], [address], 3 16:40:31 vitamin B12, serum 2022 023 [facility], [address] [place] [address], [address], 3 16:40:30 vitamin D, 25-hydroxy , total, serum 2021 022 [facility], [address] [place] [address], 12[address], 2 13:45:20 vitamin B12 + folate, serum or blood 2021 [facility], [address] [place] [address], [address], 2 13:45:20 TSH + free T4, serum 2021 022 [facility], [address] [place] [address], [address], 2 13:45:20 iron + TIBC + ferritin, serum 2021 022 [facility], [address] [place] [address], 268[address], 2 13:45:20 CBC w/ auto diff 2021 022 [facility], [address] [place] [address], [address], 2 13:45:20 TSH + free T4, serum 2021 022 [facility], [address] [place] [address], 9[address], 2 16:30:16 vitamin D, 25-hydroxy , total, serum 2021 [facility], [address] [place] [address], 6[address], 16:30:16 iron + TIBC + ferritin, serum 2021 [facility], [address] [place] [address], 18990, 16:30:16 vitamin B12 + folate, serum or blood 2021 [facility], [address] [place] [address], 78[address], 16:30:16 CBC w/ auto diff 2021 [facility], [address] [place] [address], [address], 16:30:16 CMP, serum or plasma 2021 [facility], [address] [place] [address], 78959, 12:14:27 ESR (erythrocy te sedimentat ion rate), blood 2021 [facility], [address] [place] [address], 915[address], 16:30:16 C-reactive protein, quantitati ve, serum or plasma 2021 [facility], [address] [place] [address], 034[address], 16:30:17 culture, urine + sensitivit y 2020 021 [facility], [address] [place] [address], [address], 1 10:07:12 urinalysis , dipstick 2020 021 [facility], [address] [facility], [address], [place], [address], 1 10:27:07 Referral sleep medicine referral - please consider for home sleep test 2022 023 [email or web address], [address], [address], [place], [address], 3 09:09:48 vestibular therapy referral 2021 022 [email or web address], [address], [place], [address], 2 10:34:30 ENT surgery referral 2021 022 [email or web address] , [address], [address], [place], [address], 2 10:34:32 Procedures None recorded. Surgeries None recorded. Imaging CT, head + brain, w/o contrast 2021 022 [facility], [address] [place], [address], 2 08:33:49 XR, cervical spine, 2 or 3 view 2021 022 [facility], [address] [place], [address], 2 16:52:25 XR, kidney + ureter + bladder 2020 021 [facility], [address] [place], [address], 1 11:03:06 US, kidney - r/o hydronephr osis, inflammati on around the bilateral kidneys indicating possible infection 2020 021 [facility], [address] [place], [address], 1 08:58:34 Medication Orders Tamiflu 75 mg capsule [address] [id number], [address] [place], [place], [id number], 3 15:59:59 azithromyc in 250 mg tablet [address] [facility], [facility] [place], [place], [id number], 3 15:59:07 meclizine 12.5 mg tablet 2021 022 [email or web address] [facility]6546, [address] [place], [place], [id number], 4 16:52:49 ondansetro n 8 mg disintegra ting tablet [address] [facility]9555, [address] [place], [place], [id number], 3 15:59:19 ciprofloxa anusha 500 mg tablet 2020 021 [facility]155, [facility] [place], [place], [id number], 2 16:13:58 Patient TargetsNo targets recorded. Patient Instructions Encounter Date Encounter Id Patient Instructions Last Modified By Organization Details Last Modified Time 06/03/2021 [id number] lexie maneuver a t home for vertigo: exercises rtryba Not available 06/03/2021 16:39:45 08/18/2022 [id number] sleep apnea: car e instructions [email or web address] Not [...] er No observ ation record ed. [email or web address] [facility] [address] [place], [address], 12/26/2020 11:30:03 06/04/19 22 06/04/2021 XR, cervi demarcus spine , 2 or 3 view No observ ation record ed. [facility] (Medical Records) [address] [place], [address], 06/05/2021 09:46:02 09/13/19 22 09/12/2021 CT, head + brain , w/o contr ast No observ ation record ed. [email or web address] [facility] (Medical Records) [address] [place], [address], 09/27/2021 06:56:48 02/24/20 23 01/27/2023 sleep study , diagn ostic (PROC ) No observ ation record ed. [email or web address] [facility] [address] [place] [address], [place], [address], 02/23/2023 18:38:58 04/01/20 23 03/30/2023 ultra sound yonatan nce for injec tion (PROC ) No observ ation record ed. [email or web address] [facility] [address] [place] [address] [place], [address], 04/01/2023 14:01:02 10/28/19 24 10/09/2023 US, renal No observ ation record ed. [email or web address] [facility] (Medical Records) [address] [place], [address], 10/30/2023 10:16:52 06/10/19 25 06/09/2024 US, renal No observ ation record ed. [email or web address] [facility] (Medical Records) [address] [place], [address], 06/13/2024 08:08:15 Result Notes None recorded. Problems Name Problem SNOMED Code Status Onset Date Resolution Date Notes Provider Name and Address Organization Details Recorded Time Acute urinary tract infection 947400570 Active 2017 LUIGI Arroyo [address] [place] [address], [address], [facility] 8 14:12:09 COVID-19 450400565 Active 2020 021 [facility] 1 10:40:27 Vertigo 256835770 Active 2021 HAO GUILLORY [address] [place] [address], [address], [facility] 2 13:36:09 Headache 17363175 Active 2021 HAO GUILLORY [address] [place] [address], [address], [facility] 2 13:38:47 Fatigue 36961056 Active 2021 HAO GUILLORY [address] [place] [address], [address], [facility] 2 13:41:39 Influenza- like symptoms 460593168 Active 2021 Oin Amezquita DO [address] [place] [address], [address], [facility] 2 15:09:27 Sleep apnea 88566100 Active 2022 Oni Amezquita DO [address] [place] [address], [address], [facility] 3 16:35:10 Streptococ demarcus sore throat 65740853 Active 2023 HAO GUILLORY [address] [place] [address], [address], [facility] 4 09:23:02 Candidiasi s of vagina 52797421 Active 2023 HAO GUILLORY [address] [place] [address], [address], [facility] 4 10:02:21 Recurrent urinary tract infection 900711686 [facility] 2017 [facility] 8 09:09:14 Iron deficiency anemia 96844626 Active 2017 [facility] 8 09:09:22 History of calculus of kidney 911742470 Active 2017 [facility] 8 09:09:37 Problem Notes None recorded. Procedures Surgical History Date Name Laterality Status Provider Name and Address Organization Details Recorded Time 2 Cerumen Removal completed HAO GUILLORY [address] [place] [address], [address], [facility] 06/03/2021 16:42:58 9 I&D completed July LUIGI Arroyo [address] [place] [address], [address], [facility] 02/02/2019 12:19:00 Imaging Results Imaging Date Name Status LastModified by Organiz ation Details LastModified Time 12/25/2020 XR, [facility] + [facility]ter + [email or web address] [address] [place], [address], 12/26/2020 11:30:03 06/04/2021 XR, cervical spine, 2 or 3 view [email or web address]) [address] [place], [address], 06/05/2021 09:46:02 09/12/2021 CT, head + brain, w/o contrast completed [email or web address] [facility] (Medical Records) [address] [place], [address], 09/27/2021 06:56:48 01/27/2023 sleep study, diagnostic (PROC) completed [email or web address] [facility] [address] [place] [address], [address], 02/23/2023 18:38:58 03/30/2023 ultrasound guidance for injection (PROC) completed [email or web address], [address], 04/01/2023 14:01:02 10/09/2023 US, renal completed [email or web address] [facility] (Medical Records) [address] [place] [address], [address], 10/30/2023 10:16:52 06/09/2024 US, renal completed [email or web address] [facility] (Medical Records) [address] [place] [address], [address], 06/13/2024 08:08:15 Procedure Notes None recorded. Medical Equipment None Reported. Allergies Allergen ID Allergen Name Allergen Category Reaction Reaction Severity Criticality Documentation Date Start Date Code Code System Note Provider Name and Address Organization Details Recorded Time 1275 acetamino phen / hydrocodo ne medicatio n Not available Not available Not available 08/28/2017 79692 2 RxNorm too stron g even at lowes t dose July LUIGI Arroyo [address] [place], [address], [facility] 8 15:17:46 1279 codeine medicatio n anaphylax is Not available Not available 08/28/2017 2670 RxNorm Nelda kwon [facility] 8 09:08:50 1280 acetamino phen / oxycodone medicatio n Not available Not available Not available 08/28/2017 99656 3 RxNorm too stron g even at lowes t dose July Cruz, PAS[place] [address] [place], [address], [facility] 8 15:17:36 3539 cephalexi n medicatio n vomiting Not available Not available 02/02/2019 2231 RxNorm heada dulce, dizzy Arminda Americotay kwon [facility] 9 11:47:26 Medications Name Sig [...] Updated DateTime 1 152.4 cm 27.1 kg/m2 22291.3 4 g 98 % 98 % 73 /min 110 mm[Hg] 70 mm[Hg] Anita Gardner [facility] 1 09:49:07 Date Recorded Body height Systolic blood pressure Diastolic blood pressure Provider Name and Address Organization Details Last Updated DateTime 06/03/2021 152.4 cm 110 mm[Hg] 70 mm[Hg] Anita Gardner [facility] 06/03/2021 16:18:04 Date Recorded Body height Heart rate Oxygen saturation Oxygen saturation in Arterial blood by Pulse oximetry Systolic blood pressure Diastolic blood pressure Provider Name and Address Organization Details Last Updated DateTime 2 152.4 cm 83 /min 96 % 96 % 110 mm[Hg] 60 mm[Hg] Nelda Joni [facility] 2 13:30:56 Date Recorded Body height Body mass index (BMI) Body weight Heart rate Oxygen saturation Oxygen saturation in Arterial blood by Pulse oximetry Systolic blood pressure Diastolic blood pressure Provider Name and Address Organization Details Last Updated DateTime 3 152.4 cm 26.4 kg/m2 27873.9 7 g 78 /min 98 % 98 % 110 mm[Hg] 70 mm[Hg] Christina Dumont [facility] 3 16:01:30 Social History Question Answer Notes LastModified by Organizat ion Details LastModified Time Tobacco Smoking Status [facility]oker [facility]10/2017 15:00:46 What Was The Date Of Your Most Recent Tobacco Screening? 08/18/2022 Information not available 08/18/2022 Do You Or [...] 50 mcg/0.25mL dose 1 completed Anita kwon [facility] 12/25/2020 09:52:09 Influenza, split virus, quadrivalent, preservative 9 completed [facility] 06/21/2019 14:51:00 COVID-19, mRNA, LNP-S, PF, 100 mcg/0.5mL dose or 50 mcg/0.25mL dose 1 completed Annette Ty kwon [facility] 05/23/2020 10:40:10 Past Encounters Encounter ID Performer Location Encounter Start Date Encounter Closed Date Diagnosis/Indication Diagnosis SNOMED-CT Code Diagnosis ICD10 Code Diagnosis Note [id number] [facility] [address] [facility], [place] [address] 11/10/2017 14:45:08 11/10/2017 16:04:56 Acute urinary tract infection 012725306 N39.0 counsellin g on prevention Right flank pain 9270957 09 R10.9 ? kidney stone cannot tolerate narcotic pain medication s ibuprofen and tylenol lots of fluids [id number] July Cruz [facility] [address] [facility], [place] [address] 12/04/2017 13:51:15 12/04/2017 14:55:59 Acute urinary tract infection 683300714 N39.0 HCG negative Acid reflux 524726311 K2 1.9 diet call if worsens, will rx prilose Amenorrhea 18452496 N91. 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 if this could be source of bleeding?? will need to see urology and also will get w/u with UA Iron deficiency 80961983 E61.1 [facility] hem[facility]cult [facility] ? check for hemoglobin opathy? [id number] Piper Wu NP, [facility] Medicine [address] [facility], [place] [address] 03/31/2018 11:21:52 03/31/2018 16:08:09 Cystitis 52334089 N30.90 [id number] Piper Wu NP, [facility] Medicine [address] [place] [address], ite [facility] [place] [address] 05/19/2018 15:34:38 05/21/2018 10:41:16 Acute maxillary sinusitis 23267967 J01.00 History of calculus of kidney 287700052 Z87.442 [place]otrips y [id number] Piper Wu NP, [facility] [address] [facility], [place] [address] 08/10/2018 15:42:50 08/10/2018 16:15:06 Pruritic rash 37421158 L28.2 [id number] Piper Wu NP, [facility] [address] [facility] [address], [place] [address] 08/16/2018 14:52:06 08/16/2018 16:41:01 Dysuria 78871513 R30.0 Pruritic rash 22907989 L 28.2 [id number] July LUIGI Arroyo [facility] Medicine [address] [facility], [place] [address] 02/02/2019 11:42:26 02/02/2019 12:30:26 Abscess 325218969 L02.91 abscess epidermoid cyst drained today but due to inadequate anesthesia , will defer cyst removal warm compress gentle massage will do 1 week of bactrim and return for cyst excision next week Adverse re action to drug 23609719 T50.905A vomiting in response to keflex keflex d/cd [id number] [facility] Medicine [address] [facility], [place] [address] 02/15/2019 13:55:24 02/15/2019 14:29:09 Knee pain 00206311 M25.569 rest ice brace if needed nsaids fu if sx dont improve resolve after 2-3 weeks Abscess 764837276 L02.91 resolved, no need for further incision Adverse re action to drug 10466937 T50.905A no issues with bactrim [id number] [facility] Medicine [address] [facility], [place] [address] 05/16/2019 14:40:16 05/16/2019 15:12:31 Acute maxillary sinusitis 84086146 J01.00 mucinex, sudafed, flonase tylenol if needed [id number] Oni Amezquita DO [facility] Internal Medicine [address] [facility], [place] [address] 06/21/2019 14:46:19 06/21/2019 15:39:12 Adult health examination 086275918 Z00.00 excellent health Active or passive immunization 611346118 Z23 utd Subluxatio n of hip joint 736147648 S73.001A will need xr [id number] HAO GUILLORY [facility] Internal Medicine [address] [facility],[place] [address] 05/25/2020 13:44:26 05/25/2020 16:24:49 Acute pyelonephritis 31448036 N10 will fu with results of culture given hx of severe kidney infections would rather her start abx, than wait on culture Vitamin D deficiency 347 77052 E55.9 needs refill Nausea 321627931 R11.0 will start on anti-emeti c for patient to be able to take her medication [id number] [facility] Internal Medicine [address] [facility] [place] [address] 12/25/2020 09:39:28 12/25/2020 14:20:37 Dysuria 30735610 R30.9 fu with culture Kidney stone 45408219 N2 0.0 r/o kidney stone infection Acute pyelonephritis 366 12729 N10 ?kidney infectionU S and XR for fu r/o kidney stone or infection [id number] HAO GUILLORY [facility] Internal Medicine [address] [place] [address], ite [facility] [place] [address] 06/03/2021 16:11:26 06/04/2021 08:41:38 Fatigue 51385188 R53.83 will start with work up for the fatigue Headache 68766211 R51.0 will fu with testing of the cervical spine given radiculopa thy symptoms Vertigo 319414651 R42 will start on meclizine 12.5 mg and zofrangive n reaction to the ear flush, mostly inner [id number] HAO GUILLORY [facility] Medicine [address] [place] [address] 08/26/2021 13:26:38 08/26/2021 16:25:51 Vertigo 972807324 R42 will fu with full work up Headache 24154090 R51.[address] for assessment of ongoing vertigo and headaches Fatigue 66630099 R53.83 will start with work up for the fatigue [id number] Oni Amezquita DO [facility] Medicine [address] [place] [address],[place] [address] 04/01/2022 10:13:32 04/01/2022 16:12:47 Influenza-like symptoms 364920246 R68.89 [id number] Oni Amezquita DO [facility] Medicine [address] [place] [address] [place] [address] 08/18/2022 15:55:10 08/18/2022 17:02:39 Active or passive immunization 736725201 Z23 utd Adult heal th examination 810777399 Z00.00 excellent health but having excessive fatiguedis cussed her sleep has been snoring a lotpt will need to call me for results approx 4-5 days after test Fatigue 43828297 R53.83 Sleep apnea 17944921 G47 .30 Health Concerns Section Related Observation LastModified by Organization Detai ls LastModified Time None Recorded Concern Status LastModified by Organization Details LastModified Time None Recorded Advance Directives Directive None Recorded Payers Encounter Date Sequence Insurance Name Policy Number Policy Nunez Covered Member ID Nunez Member ID Guarantor Name 12/25/2020 1 [facility] [id number] 1 Sharim M Kishor [id number] Sharim Kishor 06/03/2021 1 [facility] [id number] 1 Sharim M Kishor [id number] Sharim Kishor 08/26/2021 1 [facility] [id number] 1 Sharim M Kishor [id number] Sharim Kishor 04/01/2022 1 [facility] [id number] 1 Sharim M Kishor [id number] Sharim Kishor 08/18/2022 1 [facility] [id number] 1 Sharim M Kishor [id number] Sharim Kishor Notes Date Note Type Note Provider [...] kidney infections, and stones HAO GUILLORY [address] [place], [address], [facility] 12/25/2020 10:12:26 2 text/html c/o [...] caused besides parosysmal vertigo HAO GUILLORY [address] [place], [address], [facility] 06/03/2021 16:48:12 2 text/html f/u paperwork vertigo: the patient is still having vertigo, constant with worsening headache symptomsalso reports fatigue, but last check showed significant def in vitamin Dwill recheck levels and kingsley also have her see ENT and PT for the vertigowith new characteristics with the vertigo and headache, need CT to r/o other possiblities that may be causing it ie inner ear dysfunction or mass fatigue: recheck levels HAO GUILLORY [address] [place], [address], [facility] 08/26/2021 13:53:49 2 text/html patient [...] in her flanks Oni Amezquita DO [address] [place], [address], [facility] 04/01/2022 15:10:11 3 text/html Annual [...] old at home Oni Amezquita DO [address] [facility], [place], [address], [facility] 08/18/2022 16:40:02 OBGyn Episode No OBEpisode recorded.
== END 2024-06-16 08:13 | disposition home or self-care (01) ==
PROVIDERS: PCP Internal Medicine; Visit Provider Nurse Practitioner Family
DX: N20.0 Calculus of kidney (principal); R31.29 Other microscopic hematuria; N39.0 Urinary tract infection, site not specified; Z13.9 Encounter for screening, unspecified
CPT/HCPCS: 99213

== ENCOUNTER → 2024-06-16 07:43 | Outpatient (BNVA) | payer OTHER, SELFPAY | PROVIDERS: PCP Internal Medicine; Visit Provider Nurse Practitioner Family | DX: N20.0 Calculus of kidney (principal); R31.29 Other microscopic hematuria | CPT/HCPCS: 81003 ==

== ENCOUNTER 2024-12-08 08:22 | Outpatient (REF) | payer OTHER, SELFPAY ==
--- NOTE | ~2024-12-08 | US_ITS ---
CLINICAL HISTORY: N20.0 - Calculus of kidney US Renal Comparison: US - US RENAL BI - 06/09/24 16:42 EST Findings: Right kidney normal size and echotexture, 11.0 cm length. Left kidney normal size and echotexture, 10.3 cm length. There are multiple bilateral nonobstructing stones, all subcentimeter. No hydronephrosis. No hydronephrosis of either kidney. Normal color Doppler IMPRESSION: 1. Bilateral nonobstructing subcentimeter renal stones. No hydronephrosis. This document has been electronically signed by: Renae Harris MD on 12/09/2024 16:32:21
--- OUTSIDE RECORDS SUMMARY | 2024-12-08 09:11 | XMS_ITS | Patient Health Record ---
Author Organization [facility] Address [address] [place] [address] Care Team Providers Care Airport Control Operator Name Role Phone JORDON GOULD Primary Care Provider Loren Marcano Unavailable [phone] Allergies Allergen (clinical drug ingredient) Drug/Non Drug Allergy documented on EMR Reaction Allergy Type Onset Date Status acetaminophen / oxycodone Percocet Unknown Drug Allergy Active Vicodin Unknown Drug Allergy Active codeine Codeine Unknown Drug Allergy Active Results Component Value Reference Range Notes PDF Report Reviewed date:07/05/2024 01:22:21 PM Interpretation: Performing Lab:[facility], [address], [address], [place], Phone - [phone], Director - [facility] Notes/Report: Clinical Information:[id number] LMP / Prev Treat...[id number] Dates / Results....2022 Unknown Elsewhere No. of containers..01 ThinPrep Vial [id number] No Culture 30 Plus Reviewed date:07/05/2024 01:22:41 PM Interpretation: Performing Lab:[facility], [address], [address], [place], Phone - [phone], Director - [facility] Notes/Report: Clinical Information:[id number] LMP / Prev Treat...[id number] Dates / Results....2022 Unknown Elsewhere No. of containers..01 ThinPrep Vial DIAGNOSIS: NEGATIVE FOR IN TRAEPITHELIAL LESION OR MALIGNANCY. Specimen adequacy: Satisfactory for evaluation. Endocervical and/or squamous metaplastic cells (endocervical component) are present. Clinician provided ICD10: Z0 1.419 Performed by: Tr sommer, Utilization Coordinator (ASCP) . . Note: The Pap smear is a screening test designed to aid in the detection of premalignant and malignant conditions of the uterine cervix. It is not a diagnostic procedure and should not be used as the sole means of detecting cervical cancer. Both false-positive and false-negative reports do occur. . Test Methodology: This liquid based ThinPrep(R) pap test was screened with the use of an image guided system. HPV Aptima Negative Negative This nucleic acid amplification test detects fourteen high-risk HPV types (16,18,31,33,35,39,45,51,52,56,58 ,59,66,68) without differentiation. HPV Genotype Reflex Criteria not met, HPV Genotype not performed. Urinalysis Reviewed date:06/30/2024 02:43:40 PM Interpretation: Performing Lab: Notes/Report: PH 6.0 PROTEIN Neg GLUCOSE Neg BLOOD Neg Reason For Referral No Information Medications Medication SIG (Take, Route, Fr equency, Duration) Notes Start Date End Date Status metroNIDAZOLE 0.75 % 1 applicatorful at bedtime Vaginal ONCE A NIGHT; Duration: 5 days 06/30/2024 Active Vitamin B12 1000 MCG 2 tablets Orally On ce a day; Duration: 30 days 06/30/2024 Active metroNIDAZOLE 500 MG 1 tablet Orally Twi ce a day; Duration: 7 days 08/03/2024 Active Social History Tobacco Use: Social History Observation Description Date Details (start date - stop date) Never Smoker NA - NA Sexual History Question Answer Notes Had sex in the past 12 months (vaginal, oral, or anal)? Yes with Men only Prevention strategies discussed: Other AUDIT-C (Standard) Question Answer Notes Did you have a drink containing alcohol in the p ast year? No Points 0 Interpretation Negative Tobacco Control (Standard) Question Answer Notes Tobacco use: Nonsmoker Problems Problem Type SNOMED Code ICD Code Onset Dates Problem Status W/U Status Risk Notes Problem Calculus of kidney ([id number]) Calculus of kidney (N20.0) Active confirmed Vital Signs Temperature 97.5 degrees Fahrenheit 06/30/2024 Blood pressure diastolic 68 mm Hg 06/30/2024 Height 60 in 06/30/2024 Blood pressure systolic 120 mm Hg 06/30/2024 Weight 140 lbs 06/30/2024 BMI 27.34 kg/m2 06/30/2024 Encounters Encounter Location Date Provider Diagnosis [facility] [address] [place] [address] 06/30/2024 Loren Shirley Encounter for gynecological examination (general) (routine) without abnormal findings Z01.419 ; Encounter for screening mammogram for malignant neoplasm of breast Z12.31 and Acute vaginitis N76.0 [facility] [address] [place] [address] 08/02/2024 Loren Cherryanueva Assessments Encounter Date Diagnosis (ICD Code) Assessment Notes Treatment Notes Treatment Clinical Notes Section Notes 06/30/2024 Encounter for gynecological examination (general) (routine) without abnormal findings (ICD-10 - Z01.419) PAP TEST WITH HPV TYPING WAS OBTAINED. 06/30/2024 Encounter for screening mammogram for malignant neoplasm of breast (ICD-10 - Z12.31) REGULAR MAMMOGRAMS AND SBE'S WERE RECOMMENDED. 06/30/2024 Acute vaginitis (ICD-10 - N76.0) DISCUSSED FINDINGS, DX AND TX OPTIONS. RECURRENT NATURE OF THE CONDITION WAS EMPHASIZED. RX AND DETAILED INSTRUCTIONS WERE GIVEN. IF SYMPTOMS KEEP RECURRING, CALL BACK AND WILL TREAT WITH ORAL FLAGYL AND BORIC ACID VAG SUPPOS. Plan Of Treatment Pending Test Test Name Order Date MM Digital Mammo Screening 06/30/2024 Next Appt Details Provider Name:Loren coronado, 07/07/2025 02:40:00 PM, [address], [address], [place], [address], Insurance Providers Payer Name Payer Address Payer Phone Subscriber Number Group Number Insured Name Patient Relationship to Insured Coverage Start Date Coverage End Date [facility] [address] [place] [address] [id number] HARSH MARIE Self - patient is the insured Medical (General) History Medical History History ICD Code COVID-19 U07.1 Calculus of kidney N20.0 Surgical History Surgery Date(Month/Year) Colonoscopy Kidney Stone Removal Multiple Times Hospitalization History Reason Date(Month/Year) 3 Vaginal Deliveries
== END 2024-12-08 08:23 | disposition home or self-care (01) ==
LOC: HO.US 08:22
PROVIDERS: PCP Internal Medicine; Visit Provider Nurse Practitioner Family
DX: N20.0 Calculus of kidney (principal)
CPT/HCPCS: 76775

== ENCOUNTER → 2024-12-08 08:24 | Outpatient (BNV) | payer OTHER, SELFPAY | PROVIDERS: PCP Internal Medicine; Visit Provider Radiology Diagnostic Radiology | DX: N20.0 Calculus of kidney (principal) | CPT/HCPCS: 76775 ==

== ENCOUNTER 2024-12-22 10:26 | Outpatient (AMB) | payer OTHER, SELFPAY ==
--- NOTE | 2024-12-22 10:27 | A.OFFVIS_ITS ---
Intake Visit Reasons: US f/u Intake Note: patient presents today for: telehealth US follow up urology medications: vit b-6 blood thinners: none imaging done: 12/09/24 Heat Treater Required: No Accompanied by: Self / Same As Patient Allergies codeine (CODEINE) Allergy (Severe, Verified 12/22/24 10:50) ANAPHYLAXIS hydrocodone (From VICODIN) Allergy (Severe, Verified 12/22/24 10:50) CHEST TIGHTNESS acetaminophen (Percocet) Allergy (Intermediate, Verified 12/22/24 10:50) Unknown oxycodone (From PERCOCET) Adverse Reaction (Severe, Verified 12/22/24 10:50) THEY ARE TOO STRONG FOR MY BODY PAIN MEDS Adverse Reaction (Severe, Uncoded 12/22/24 10:50) PT STATES ONLY TAKES MOTRIN-HAS OVERDOSE RX TO STRONGER Medication List - Last Reconciled 12/22/24 by GERMAN Guerra pyridoxine (vitamin B6) 100 mg PO DAILY 90 days HPI Comments Details: Suma is a very pleasant 44-year-old female patient of Dr. Amezquita. She is being followed up on today via video telehealth for history nephrolithiasis and recurrent urinary tract infections. In discussion with the patient today she reports episodes of urinary frequency and bladder pressure over the last 1-2 weeks. She reports she is urinating approximately every 5-15 minutes and feels she has bladder pressure. We did discussed potential causes of these lower urinary tract symptoms. We discussed obtaining urine culture for further assessment evaluation she is agreeable. We also discussed worsening symptoms. Recent renal imaging results reviewed with the patient today. 12/12 bilateral kidneys are normal in size and echotexture. There are multiple bilateral nonobstructing stones, all subcentimeter. No hydronephrosis noted bilaterally. She does report compliance with adequate hydration as well as vitamin B6 as prescribed. She denies incontinence, nocturia, hematuria, dysuria, foul smelling urine, changes to urinary stream, flank pain, fever, and or chills. Unable to collect Litholink at this time due to increase in co-payment with her insurance company. She otherwise offers no issues or concerns at this time. [facility] Medical History Iron deficiency anemia Heartburn Renal stones Surgical History History of lithotripsy History of lithotripsy Social History Alcohol intake: current Alcohol intake frequency: holidays/special occasions only Patient Tobacco Use Status: Never used Tobacco Second Hand Smoke Exposure: No Review of Systems Const All systems reviewed & are unremarkable except as noted in HPI and below Physical Exam Const General: cooperative, healthy appearing, comfortable, no acute distress, well developed, alert and awake Orientation/consciousness: patient oriented x3 Resp Effort & Inspection: normal respiratory effort and able to speak in complete sentences Neuro General: patient oriented x3 Psych Appearance: grossly normal and well kempt Speech and movement: Clear speech present Affect: normal affect Thought process: Normal thought process present Thought content: Normal thought content present Insight: Fair insight present (Psych) Judgement: Fair judgement present (Psych) Telehealth Telehealth Telehealth Platform: [employer] Location of provider rendering services: practice address Location of patient: address on file Patient Identification confirmed using: Name, : Yes Telehealth method: video Patient verbally consented to treatment: Yes Patient verbally consented to billing insurance company: Yes Patient informed of any privacy concerns related to visit: Yes Minutes spent on Phone/Video with Pt.: 15 Results Reviewed Results Reviewed: Date of Service: 12/08/24 Procedure(s): US renal BI Findings: Right kidney normal size and echotexture, 11.0 cm length. Left kidney normal size and echotexture, 10.3 cm length. There are multiple bilateral nonobstructing stones, all subcentimeter. No hydronephrosis. No hydronephrosis of either kidney. Normal color Doppler IMPRESSION: 1. Bilateral nonobstructing subcentimeter renal stones. No hydronephrosis. Assessment & Plan Assessment & Plan (1) Nephrolithiasis: Code(s): N20.0 - Calculus of kidney Category: Medical (2) Urinary frequency: Code(s): R35.0 - Frequency of micturition Category: Medical (3) Sensation of pressure in bladder area: Code(s): R39.89 - Other symptoms and signs involving the genitourinary system Category: Medical Plan Recent renal imaging results reviewed with the patient today; as noted above. Will obtain urine culture for further assessment evaluation; will await results for potential treatment. We did discussed potential near future bladder diary for further assessment evaluation. Will hold off on 24 hour Litholink at this time due to increase in co-pay with patient's insurance and her preference. We did discussed potential causes of urinary frequency and bladder pressure. We did discussed worsening symptoms. Continue vitamin B6; refill provided. We discussed importance of continuing with adequate hydration in relation to nephrolithiasis as well as overall health and well-being. Follow-up in 1-3 months with [facility]; or sooner with any issues, concerns, and or questions. Orders: Orders Urine Culture Today R35.0 - Frequency of micturition, R39.89 - Other symptoms and signs involving the genitourinary system Medications: Refilled pyridoxine (vitamin B6) 100 mg PO DAILY 90 tabs 4RF 90 days Patient Instructions: The patient had an opportunity to ask questions regarding the treatment plan. All questions were answered. Physical exam, labs, and imaging were discussed and reviewed in detail. As well as risks, benefits, and discussion of treatment choices. No major barriers to understanding were identified. The patient expressed understanding and agreement with the above treatment plan. The patient was made aware they should contact our office by phone for worsening of their current condition, the appearance of new symptoms, or with any questions or concerns. Compliance is encouraged with any medications and follow up testing that is ordered. It is a privilege to be allowed the opportunity to participate in? your urological care.? Again, if you have any questions or concerns If you have any questions or concerns please do not hesitate to contact me. The office is [phone]. This note is constructed using voice recognition software. While every effort evans s been made to ensure accuracy charter pilot errors may have been included. Yours sincerely, GERMAN Guerra Coding Level of Care Code Tele Est Pt Level 3 (39502) Diagnoses Nephrolithiasis N20.0 Urinary frequency R35.0 Sensation of pressure in bladder area R39.89
--- OUTSIDE RECORDS SUMMARY | 2024-12-22 11:46 | XMS_ITS | Patient Health Record ---
[facility] Organization [facility] Address [address] [place] [address] Care Team Providers Care Housekeeping Associate Name Role Phone JORDON GOULD Primary Care Provider Loren Marcano Unavailable [phone] Allergies Allergen (clinical drug ingredient) Drug/Non Drug Allergy documented on EMR Reaction Allergy Type Onset Date Status acetaminophen / oxycodone Percocet Unknown Drug Allergy Active Vicodin Unknown Drug Allergy Active codeine Codeine Unknown Drug Allergy Active Results Component Value Reference Range Notes Urinalysis Reviewed date:06/30/2024 02:43:40 PM Interpretation: Performing Lab: Notes/Report: PH 6.0 PROTEIN Neg GLUCOSE Neg BLOOD Neg [id number] IGP No Culture 30 Plus Reviewed date:07/05/2024 01:22:41 PM Interpretation: Performing Lab:[facility], [address], [address], [place], Phone - [phone], Director - [facility] Notes/Report: Clinical Information:[id number] LMP / Prev Treat...[id number]=[id number] Dates / Results....2022 Unknown Elsewhere No. of containers..01 ThinPrep Vial DIAGNOSIS: NEGATIVE FOR IN TRAEPITHELIAL LESION OR MALIGNANCY. Specimen adequacy: Satisfactory for evaluation. Endocervical and/or squamous metaplastic cells (endocervical component) are present. Clinician provided ICD10: Z0 1.419 Performed by: Tr sommer Human Factors Specialist (ASCP) . . Note: The Pap smear [...] Criteria not met, HPV Genotype not performed. PDF Report Reviewed date:07/05/2024 01:22:21 PM Interpretation: Performing Lab:[facility] [place], [address], [address], [place], Phone - [phone], Director - [facility] Notes/Report: Clinical Information:[id number] LMP / Prev Treat...[id number] Dates / Results....2022 Unknown Elsewhere No. of containers..01 ThinPrep Vial Reason For Referral No Information Medications Medication [...] Status Risk Notes Problem Calculus of kidney (05802675) Calculus of kidney (N20.0) Active confirmed Vital Signs Temperature 97.5 degrees Fahrenheit 06/30/2024 Blood pressure diastolic 68 mm Hg 06/30/2024 Height 60 in 06/30/2024 Blood pressure systolic 120 mm Hg 06/30/2024 Weight 140 lbs 06/30/2024 BMI 27.34 kg/m2 06/30/2024 Encounters Encounter Location Date Provider Diagnosis [facility] [address] [place] [address] 06/30/2024 Loren Shirley Encounter for gynecological examination (general) (routine) without abnormal findings Z01.419 ; Encounter for screening mammogram for malignant neoplasm of breast Z12.31 and Acute vaginitis N76.0 [facility] [address] [place] [address] 08/02/2024 Loren Cherryanueva Assessments Encounter Date Diagnosis [...] Provider Name:Loren coronado, 07/07/2025 02:40:00 PM, [address], [address], [place], [address], Insurance Providers Payer Name Payer Address Payer Phone Subscriber Number Group Number Insured Name Patient Relationship to Insured Coverage Start Date Coverage End Date [facility] [address] [place] [address] [id number] HARSH MARIE Self - patient is the insured Medical (General) History Medical History History ICD Code COVID-19 U07.1 Calculus of kidney N20.0 Surgical History Surgery Date(Month/Year) Colonoscopy Kidney Stone Removal Multiple Times Hospitalization History Reason Date(Month/Year) 3 Vaginal Deliveries
== END 2024-12-22 11:06 | disposition home or self-care (01) ==
LOC: HO.HUSH 10:26
PROVIDERS: PCP Internal Medicine; Visit Provider Nurse Practitioner Family
DX: N20.0 Calculus of kidney (principal); R35.0 Frequency of micturition; R39.89 Other symptoms and signs involving the genitourinary system
CPT/HCPCS: 99213